=== PATIENT | female | born 1945 | race Caucasian/White ===

== ENCOUNTER 2019-04-25 11:49 | Outpatient (CLI) | payer MEDICARE, SELFPAY ==
--- NOTE | 2019-04-25 11:56 | US_ITS ---
WS: [id number] ULTRASOUND-GUIDED LEFT BREAST BIOPSY CLINICAL INFORMATION: MASS OF LEFT BREAST ON MAMMOGRAM COMPARISON: None. FINDINGS: The procedure including risks, benefits, and complications were discussed with the patient who agreed to proceed. Using sterile technique patient was prepped and draped in the usual sterile fashion. Aft er 1% lidocaine utilizing real-time ultrasound guidance 7 14-gauge cores were obtained of the left br east lesion at the 1 o'clock position. Subsequently a titanium clip was placed in the biopsy cavity. No immediate complications. 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 Microcalc ifications identified. US/[place] [id number] IMPRESSION: 1. Uncomplicated ultrasound-guided left breast biopsy. 2. The pathology demonstrates moderately differentiated invasive ductal carcin chandler nuclear grade 2. Microcalcifications identified. 3. Breast cancer prognostic profile pending. BI-RADS: 6-Known Biopsy-Proven Malignancy FOLLOW UP: See Report Recommend ONCOLOGY and SURGERY consultation.
[2019-05-06 10:44] LABS: Miscellaneous Test See Scanned Lab Rpt
== END 2019-04-25 11:50 | disposition home or self-care (01) ==
LOC: RAD 11:53
PROVIDERS: Family Provider Registered Nurse; PCP Registered Nurse; Visit Provider Registered Nurse
DX: C50.412 Malignant neoplasm of upper-outer quadrant of left female breast (principal); N63.21 Unspecified lump in the left breast, upper outer quadrant; R92.0 Mammographic microcalcification found on diagnostic imaging of breast
CPT/HCPCS: 19083; 88305; 88361; 88367; 88374

== ENCOUNTER 2019-05-14 09:17 | Outpatient (CLI) | payer MEDICARE, SELFPAY ==
--- NOTE | 2019-05-14 11:31 | ONC FU_ITS ---
Dr. Paiz follow up note Patient: Nina Cazares Unit #: [id number]: 1945 Dicatated By: Regis Paiz M.D.Date of Visit:May 14, 2019 Onc Med Follow-up/Prog Note History of Present Illness: Mrs. Nina Connelly, is a 73-year-old female with history of uterine carcinoma diagnosed in 2009, underwent hysterectomy and bilateral nephrectomy in [place], [place] followed by radiation therapy and chemotherapy in [facility]. Subsequently followed by Dr. masters with no evidence of recurrence. As per patient recently she went for routine yearly health checkup and mammogram was ordered which showed lesion at 1:00 position in the left breast, patient underwent ultrasound-guided biopsy of left breast on 04/25/2019 and final pathology report came back moderately differentiated invasive ductal carcinoma, grade 2, tumor size 0.4 cm, ER 89% positive SC 82% positives HER-2/shahida 2+ but negative for HER-2/shahida overexpression by IHC and over amplification by FISH. Patient denies any nipple discharge or retraction. Patient denies any palpable mass in the breast or in left axilla. Patient denies any new bony pains., As per patient it was incidental finding on her routine mammogram. Patient has family history of breast cancer in her mother at age 86 and maternal aunt at age 75 years. Patient also reported menarche at age 16 and menopause around age 52 and no history of hormonal supplements. Patient denies any fever chills denies any nausea or vomiting denies any headaches or blurred vision denies any shortness of breath or chest pain denies any jaundice denies any bony pains denies any weight loss. Medications: Aspirin 1 Tablet (of 81 mg) Oral daily, Escitalopram Oxalate 1 Tablet (of 10 mg) Oral daily, Lisinopril 1 Tablet (of 20 mg) Oral daily Allergies: No Known Allergies. Review of Systems: Review of Systems is not available for this patient. Vital Signs: Performed on May 14, 2019 10:28 Height - 63.00 in Weight - 185.0 lbs (HIGH) BSA - 1.87 sq.m BMI - 32.77 (HIGH) Temperature - 98.3 F (LOW) Pulse - 68 /min Respiration - 24 /min BP - 117/76 mm(hg) O2 Sat - 98 % Pain - 0 Performance Status: 0 - Fully active, able to carry on all predisease activities without restrictions. (ECOG) Physical Examination: ENMT - No oral exudates, ulcers, masses, thrush or mucositis. Oropharynx clear. Tongue normal. no left axillary lymphadenopathy, Respiratory - Lungs are clear to auscultation without rhonchi or wheezing, Cardiovascular - Regular rate and rhythm of heart, Abdomen - Non-tender, non-distended, Good bowel sounds. No guarding or rebound tenderness. No pulsatile masses, Extremities - no edema rash. Lab/Imaging: Most recent lab results are not available for this patient. Impression: Moderately differentiated invasive ductal carcinoma involving left breast per ultrasound guided left breast biopsy done on 04/25/2019 final pathology report showed moderately differentiated invasive ductal carcinoma, grade 2, ER strongly positive at 89%, SC strongly positive at 82%, HER-2/shahida 2+ posi but negative for HER-2/shahida overexpression by IHC and over amplification by FISH. Ki-67 8% 2. History of uterine carcinoma diagnosed in [address] masters , underwent bilateral oophorectomy/hysterectomy followed by radiation therapy and chemotherapy in [place], Plan: Discussed with patient regarding her disease status and further treatment options., Clinically appears patient has early-stage left breast invasive ductal carcinoma as it was incidental finding on mammogram and no palpable left axillary lymphadenopathy. ER/SC positive, low Ki-67, HER-2/shahida negative. At this point, we will refer her to surgeon for left breast lumpectomy with sentinel lymph node biopsy and also consider Oncotype DX score. Patient return to clinic after the procedure for further discussion and treatment plan. Signed By: Regis Piaz M.D. <<Signature on File>>
== END 2019-05-14 09:18 | disposition home or self-care (01) ==
LOC: ONCMED 09:17
PROVIDERS: Family Provider Registered Nurse; PCP Registered Nurse; Referring Provider Registered Nurse; Visit Provider Internal Medicine Hematology & Oncology
DX: C50.412 Malignant neoplasm of upper-outer quadrant of left female breast (principal); Z85.42 Personal history of malignant neoplasm of other parts of uterus; Z17.0 Estrogen receptor positive status [ER+]; Z79.82 Long term (current) use of aspirin; Z92.21 Personal history of antineoplastic chemotherapy; Z92.3 Personal history of irradiation; Z90.710 Acquired absence of both cervix and uterus
CPT/HCPCS: 99205

== ENCOUNTER 2019-05-27 08:21 | Day surgery (SDC) | payer MEDICARE, SELFPAY ==
[2019-05-26 15:01] VITALS: BMI 30.1
[2019-05-27] VITALS (12 sets, daily range): BP systolic 103–151; BP diastolic 56–80; PULSE 76–101; RESP 13–26; TEMP 36.3–36.6; O2SAT 92–98
--- NOTE | 2019-05-27 | US_ITS ---
WS: [id number] ULTRASOUND-GUIDED LEFT BREAST NEEDLE LOCALIZATION HISTORY: Needle localization LEFT breast mass. Procedure, risks and complications were explained to the patient. Consent is obtained. Skin is cleansed with ChloraPrep and anesthetized with 1% buffered lidocaine. Needle and guidewire pl aced to the area of concern with no complications. Ultrasound guidance performed during the needle lo calization. Guidewire is left within the lesion. Guidewire secured and no complications encountered. Patient is being transported to the OR suite. Specimen radiograph is also reviewed. Specimen contains the mass, clip and localization wire. 1. Uncomplicated needle localization of the LEFT breast mass at 1:00. PATHOLOGY RESULTS: Moderately differentiated carcinoma within 1 cm of the margin. RECOMMENDATIONS: Follow-up with Dr. Mckeon. US/US breast surgical specimen IMPRESSION:
--- NOTE | 2019-05-27 | NM_ITS ---
WS: [id number] NUCLEAR MEDICINE SENTINEL LYMPH NODE IMAGING HISTORY: SENTINAL NODE, LEFT breast. COMPARISON: 04/25/2019. 04/01/2019 TECHNIQUE: The patient was injected with 1.01 mCi of Technetium 99 ultra filtered sulfur colloid. Inj ection is intradermal in a periareolar location. Four aliquots are used. Uncomplicated injection. No imaging performed. NM/NM sentinel node inject [id number] IMPRESSION: Uncomplicated LEFT breast sentinel node injection.
--- NOTE | 2019-05-27 08:00 | US_ITS ---
WS: [id number] ULTRASOUND-GUIDED LEFT BREAST NEEDLE LOCALIZATION HISTORY: Needle localization LEFT breast mass. Procedure, risks and complications were explained to the patient. Consent is obtained. Skin is cleansed with ChloraPrep and anesthetized with 1% buffered lidocaine. Needle and guidewire pl aced to the area of concern with no complications. Ultrasound guidance performed during the needle lo calization. Guidewire is left within the lesion. Guidewire secured and no complications encountered. Patient is being transported to the OR suite. Specimen radiograph is also reviewed. Specimen contains the mass, clip and localization wire. 1. Uncomplicated needle localization of the LEFT breast mass at 1:00. PATHOLOGY RESULTS: Moderately differentiated carcinoma within 1 cm of the margin. RECOMMENDATIONS: Follow-up with Dr. Mckeon. US/[place] [id number] IMPRESSION:
[2019-05-27] MEDS: sodium chloride 0.9% 1,000 ML 30 ML IV (10:20)
--- NOTE | 2019-05-27 10:31 | ANES.PREANE2 ---
Pre-Anesthetic Assessment Pre-Anesthetic Assessment: Height/Weight: Height 1.6 m Weight 77.111 kg Temp Pulse Resp BP Pulse Ox 98 F 76 18 151/57 97 05/27/19 09:00 05/27/19 09:00 05/27/19 09:00 05/27/19 09:00 05/27/19 09:00 Proposed Procedure: Operation Date: 05/27/19 10:30 Proposed Procedures p Sentinal Lymph Node Biopsy [id number]/D05.12(Left) - Jason Mckeon MD s Breast Biopsy Needle Localization(Left) - Jason Mckeon MD s Breast Biopsy(Left) - Jason Mckeon MD Last intake: Intake Last Liquid Date 05/27/19 Last Liquid Time 06:00 Last Solid Date 05/26/19 Last Solid Time 21:00 Social: Social History: Tobacco ([id number]) and No alcohol Exam: Pre-Anes Outpt Exam: alert, oriented x 3, clear to auscultation bilaterally and regular rate & rhythm Airway: Submandibular: WNL Cervical ROM: WNL MP: 2 Dentition: False (upper) and Other (poor teeth) History/ROS: No significant history except as noted Pulmonary: Pulmonary: None reported CV/HEM: CV/HEM: HTN : : None reported Hepatic: Hepatic: None reported GI: GI: None reported Metabolic: Metabolic: None reported Musc/skel: Musc/skel: None reported Neuropsych: Neuropsych: Anxiety and Depression Anesthetic Plan: ASA status: 3 Anesthesia: Anesthesia Evaluation and General Risk of > 500 ml blood loss (7ml/kg in children): No PFSH Anesthesia PFSH: Medical History Enrolled in chronic care management Surgical History History of breast biopsy History of hysterectomy (~2009) History of lymph node excision (~04/2019) History of tonsillectomy Family History Mother Breast cancer Denies family history of Anesthesia complication Bleeding disorder Social History Smoking and tobacco status: former smoker Quit status (tobacco): has quit using tobacco Alcohol intake: never Adopted: No Caregiver/support person: Yes Lives independently: Yes Household members: family Housing: House Marital status: / service: No Current occupational status: retired Current occupational exposures/hazards: No Pets and animals: No History of recent travel: No Sexually active: No Current gender identity: Female Tia/Sabianist: Mormonism Special tia needs: No Agree to transfusion: No Financial difficulty paying for basics: Decline to Answer Data Anesthesia Cardiac Studies: No Data to Display
--- NOTE | 2019-05-27 11:10 | W.PM.OPSUD ---
Surgery/Procedure H&P Update DATE OF PROCEDURE: May 27, 2019 DATE H&P PERFORMED: 05/15/19 H&P UPDATE INFORMATION: H&P completed within last 30 days and No changes to prior documentation PREOP DIAGNOSIS: Left breast cancer PRIMARY INDICATION FOR PROCEDURE: The same PLANNED PROCEDURE: Operation Date: 05/27/19 10:30 Proposed Procedures p Sentinal Lymph Node Biopsy [id number]/D05.12(Left) - Jason Mckeon MD s Breast Biopsy Needle Localization(Left) - Jason Mckeon MD s Breast Biopsy(Left) - Jason Mckeon MD
[2019-05-27] MEDS: isosulfan blue 10 mg/mL SDV 5mL SUBCUT (11:45)
[2019-05-27] MEDS: lidocaine 2% INJ 20 mL INJECTION (11:46)
--- NOTE | 2019-05-27 13:12 | P.OP_ITS ---
Operative Report Date of procedure: May 27, 2019 Pre-op Diagnosis: Left breast cancer Post-op diagnosis: same Post-op Findings: Left breast lumpectomy including needle localization with ultrasound prior to surgery Left axillary sentinel lymph nodes #1 in vivo 93 and ex vivo and #2 in vivo 25 and 0 Surgical clips applied at the bed of the lumpectomy in the left axilla Procedure Done: Lumpectomy of needle localized left breast lump Left axillary sentinel lymph node biopsy Interpretation of the gamma probe was done by me through the whole entire Specimens removed/disposition: Left breast mass Left axillary sentinel lymph node by Surgeon: Jason Mckeon Kosher Butcher: Surgical techs Nighat and Lauryn Medical student [employer] Digital Marketing Specialist Circulating nurses Maya and Kitty ROSE Anesthesia: General (DOUGLAS Rios) Estimated blood loss (mL): 10 Condition: stable Disposition: same day Brief History: This is a pleasant 73 years old female patient was recently diagnosed with a small mass of the left breast that shows invasive component of infiltrating ductal carcinoma, I did evaluate the patient and counseled her for needle localization with lumpectomy and sentinel lymph node biopsy of the left axilla, patient agreed to proceed Informed consent per chart Procedure: In the nuclear medicine suite,Procedure was explained to the patient. Informed consent obtained. Time out was performed. The correct breast was marked. The skin at the adrenal skin interface was marked at the 12:00, 3:00, 6:00, 9:00 positions and prepped in a sterile manner. At the skin markings, the subcutaneous soft tissues were anesthetized with buffered 1% lidocaine. At each site, single aliquots of technetium 99m filtered sulfur colloid were administered into the subcutaneous soft tissues (total activity of 1.1 mCi). No apparent post procedure complication. Also,After patient undergone a needle localization at Radiology Department under ultrasound guidance Few hours later, the patient was taken to the operating room after marking the left breast and axilla by myself in the holding area, and general anesthesia was induced,Time-out was done verifying the patient's name/date of /planned procedure and destination after the procedure, all were in agreement. SCDs confirmed to be functioning, preoperative antibiotics administered per protocol, and beta clif protocol was confirmed, appropriate positioning of the patient was done by me. patient was placed in supine position, with her left side being towards the edge of the table, I was able to take down the tape and dressing on top of the wire without jeopardizing it. And hand-held gamma probe was used to identify the location of the hottest spot in the axilla .prep and drape was done for the chest including both breasts and left arm and axilla, time-out was done verifying the patient's name medical record number and destination after the procedure, all were in agreement, IV antibiotics were given with induction. Lymphazurin blue dye was injected at the subareolar region, this was massaged gently for 5 minutes, again hand-held probe was used to identify the location of the hottest spot in the axilla. After identifying the direction of the wire on the images .I did perform a transverse incision at the site of entrance of the needle used for the localization , dissection was carried on using electrocautery. The localization wire was grasped and pulled into the incision and dissection continued towards the tip of the wire. The breast tissue containing imae abnormality was grasped with Allis forceps and using electrocautery the specimen was dissected free from the surrounding tissue.good margin of normal breast tissue surrounding the mass, and and the specimen was taken out and passed to the circulating nurse to send for ultrasound and pathology. Specimen was oriented with short suture superior and wire marked lateral Later we got the clearance from radiology department that the imaged abnormality was all included in the specimen with appropriate margins Attention was deviated to the left leg Prior to the incision, incision was made over the left axilla, the probe was placed in contact with the node/stained blue, each lymph node was excised in its entirety. Adama counts as follows [place] lymph node #1 in vivo 93 ex vivo 0 [place] lymph node #2 in vivo 25 and ex vivo is The above lymph node was placed in order and passed to the circulating nurse for permanent pathology No additional hot spots were detected, or blue lymphatics were identified. No clinically abnormal nodes were palpated. Procedure was terminated at this point. Hemostasis was achieved using small clips and Bovie cautery, after thorough irrigation of the left axilla, and the wound was closed in layers using interrupted 3-0 Vicryl followed by 4-0 Monocryl. Thorough irrigation of of both cavities in occluding the left axillary wound and the left breast was done and hemostasis, followed by deep dermal closure by 3-0 Vicryl, then 4-0 Monocryl for skin closure Lidocaine 2% was injected at the site of the incision, Dermabond was applied followed by dry dressing in the form of Telfa and Tegaderm. Pressure dressing was applied followed by fluffs and a sports bra Patient tolerated the procedure well, count of instruments,needles and sponges were completed at the end of the procedure. And then patient was taken to the recovery area in stable condition. I was present for the whole entire procedure
--- NOTE | 2019-05-27 13:26 | SUR.PHASEI ---
1318 PT TO PACU SLEEPY WITH ORAL AIRWAY IN PLACE WITH GOOD RESP NOTED PT LT BREAST AND LT AXILLARY SITES WITH EXOFIN AND FLUFFS AND SUPPORT BRA D/I
--- NOTE | 2019-05-27 13:30 | SUR.PHASEI ---
1325 PT AWAKES FOR FEW SECONDS ORAL AIR WAY OUT PT QUICKLY BACK TO SLEEP WITH GOOD RESP EFFORT NOTED ,VSS
--- NOTE | 2019-05-27 13:34 | SUR.PHASEI ---
PT ON RA , MORE ALERT TAKING OCC ICE CHIPS
--- NOTE | 2019-05-27 13:46 | SUR.PHASEI ---
1340 PT ON 2LNC SATS UP TO 97\\5 PT ALERT TAKING ICE CHIPS VSS
== END 2019-05-27 14:41 | disposition home or self-care (01) ==
PROVIDERS: Family Provider Registered Nurse; PCP Registered Nurse; Visit Provider Surgery
PROC: (CPT 19301; principal; 2019-05-27 10:30)
PROC: (CPT 19301; 2019-05-27 10:30)
PROC: (CPT 19301; 2019-05-27 10:30)
DX: C50.912 Malignant neoplasm of unspecified site of left female breast (principal); Z79.82 Long term (current) use of aspirin; Z87.891 Personal history of nicotine dependence; I10 Essential (primary) hypertension
CPT/HCPCS: 19301; 38500; 12345; 19285; 38792; 88305; 96365; A9541; J0690; J1100; J1885; J2001; J2370; J2405; J2704; J3010; J7030; Q9968

== ENCOUNTER 2019-06-04 08:41 | Outpatient (RCR) | payer MEDICARE, SELFPAY | END 2019-06-07 23:59 | disposition home or self-care (01) | LOC: SPT 08:41 | PROVIDERS: Family Provider Registered Nurse; PCP Registered Nurse; Referring Provider Surgery; Visit Provider Surgery | DX: C50.919 Malignant neoplasm of unspecified site of unspecified female breast (principal) | CPT/HCPCS: 97162 ==

== ENCOUNTER 2019-06-08 06:00 | Outpatient (RCR) | payer MEDICARE, SELFPAY | END 2019-07-08 23:59 | disposition home or self-care (01) | LOC: SPT 06:00 | PROVIDERS: Family Provider Registered Nurse; PCP Registered Nurse; Referring Provider Surgery; Visit Provider Surgery | DX: C50.919 Malignant neoplasm of unspecified site of unspecified female breast (principal) | CPT/HCPCS: 97140 ==

== ENCOUNTER 2019-06-26 14:37 | Outpatient (CLI) | payer MEDICARE, SELFPAY ==
--- NOTE | 2019-06-26 14:45 | USCV_ITS ---
Nina Cazares Age: 73 Gender: F : 1945 Exam Date: 06/26/2019 14:59 Ordering Phys: Danika Butler ELECTRONICS SCALE TESTER Technologist: Rhonda Dinero Exam Location: [facility] Indication: RED LOWER RT LEG HISTORY: Red lower rt leg. PROCEDURES: The venous duplex Doppler examination of both lower extremities was performed in the standard fashion. The following venous structures were evaluated: common femoral vein, profunda vein, proximal portion of the greater saphenous vein, superficial femoral vein, and the popliteal vein. In addition, the posterior tibial and peroneal trunk were evaluated. Serial compression, augmentation maneuvers, and spectral Doppler flow evaluation were performed. FINDINGS: No DVT seen in any vessel examined CONCLUSIONS No evidence of right lower extremity DVT. No evidence of left lower extremity DVT. Yg Lopes MD (Electronically Signed) Final Date: 26 June 2019 16:03 S
== END 2019-06-26 14:38 | disposition home or self-care (01) ==
LOC: RAD 14:42
PROVIDERS: Family Provider Registered Nurse; PCP Registered Nurse; Visit Provider Nurse Practitioner Family
DX: I82.409 Acute embolism and thrombosis of unspecified deep veins of unspecified lower extremity (principal)
CPT/HCPCS: 93970

== ENCOUNTER 2019-07-08 08:27 | Outpatient (CLI) | payer MEDICARE, SELFPAY ==
--- NOTE | 2019-07-09 15:24 | ONC FU_ITS ---
Dr. Paiz follow up note Patient: Nina Cazares Unit #: [id number]: 1945 Dicatated By: Regis Paiz M.D.Date of Visit:Jul 08, 2019 Onc Med Follow-up/Prog Note History of Present Illness: Mrs. Nina Connelly, is a 73-year-old female with history of uterine carcinoma diagnosed in 2009, underwent hysterectomy and bilateral nephrectomy in [place], [place] followed by radiation therapy and chemotherapy in [facility]. Subsequently followed by Dr. masters with no evidence of recurrence. As per patient recently she went for routine yearly health checkup and mammogram was ordered which showed lesion at 1:00 position in the left breast, patient underwent ultrasound-guided biopsy of left breast on 04/25/2019 and final pathology report came back moderately differentiated invasive ductal carcinoma, grade 2, tumor size 0.4 cm, ER 89% positive ID 82% positives HER-2/shahida 2+ but negative for HER-2/shahida overexpression by IHC and over amplification by FISH. Underwent left breast lumpectomy with sentinel lymph node biopsy on no 05/27/2019 final pathology report showed residual moderately differentiated invasive ductal carcinoma, 0.5 cm, grade 2, clear surgical margins but close. Two left axillary sentinel lymph node were examined showed no evidence of metastatic disease. T1a, N0 MX Oncotype DX score 5 e.g. low . Risk of distant recurrence at 9 year with aromatase inhibitor is about 3% and there is no benefit from chemotherapy.started on Arimidex 1 mg by mouth daily for 5 years along with vitamin D/calcium on Patient denies any nipple discharge or retraction. Patient denies any palpable mass in the breast or in left axilla. Patient denies any new bony pains., As per patient it was incidental finding on her routine mammogram. Patient has family history of breast cancer in her mother at age 86 and maternal aunt at age 75 years. Patient also reported menarche at age 16 and menopause around age 52 and no history of hormonal supplements. Patient denies any fever chills denies any nausea or vomiting denies any headaches or blurred vision denies any shortness of breath or chest pain denies any jaundice denies any bony pains denies any weight loss. Came for follow-up, denies any specific complaints, denies any fever chills denies any nausea vomiting surgical wound is healing well. Medications: Aspirin 1 Tablet (of 81 mg) Oral daily, Escitalopram Oxalate 1 Tablet (of 10 mg) Oral daily, Lisinopril 1 Tablet (of 20 mg) Oral daily Allergies: No Known Allergies. Review of Systems: Review of Systems is not available for this patient. Vital Signs: Performed on Jul 08, 2019 08:43 Height - 63.00 in Weight - 180.8 lbs (LOW) BSA - 1.85 sq.m BMI - 32.03 (HIGH) Temperature - 97.6 F (LOW) Pulse - 70 /min Respiration - 20 /min BP - 142/71 mm(hg) (HIGH) O2 Sat - 98 % Pain - 0 Performance Status: 0 - Fully active, able to carry on all predisease activities without restrictions. (ECOG) Physical Examination: Respiratory - Lungs are clear to auscultation without rhonchi or wheezing, Cardiovascular - Regular rate and rhythm of heart, Extremities - no edema. Lab/Imaging: Most recent lab results are not available for this patient. Impression: Moderately differentiated invasive ductal carcinoma involving left breast status post lumpectomy with left axilla sentinel lymph node dissection done on 05/27/2019 final pathology report showed 0.5 cm invasive tumor, grade 2 clear surgical margins but close. Two sentinel lymph nodes were examined and showed no evidence of metastatic disease . T1a , N0, stage IA Oncotype DX score 5 e.g. low, no benefit from chemotherapy. Risk of distant recurrence at 9 years with aromatase inhibitor is about 3%. started on Arimidex 1 mg for 5 years along with vitamin D/calcium supplements on ER strongly positive at 89%, ID strongly positive at 82%, HER-2/shahida 2+ posi but negative for HER-2/shahida overexpression by IHC and over amplification by FISH. Ki-67 8% 2. History of uterine carcinoma diagnosed [place] [address] masters , underwent bilateral oophorectomy/hysterectomy followed by radiation therapy and chemotherapy in [place], Plan: Discussed with patient regarding her final pathology report which showed small residual invasive tumor e.g. 0.5 cm and 2 axillary/sentinel lymph nodes was examined and showed no evidence of disease, being ER/ID positive HER-2/shahida negative, prognostic Oncotype DX assay was ordered which showed low score e.g. 5, means no benefit from adjuvant chemotherapy and with aromatase inhibitor risk of distance metastases at 9 years will be about 3%. At this point we will start her on adjuvant hormonal therapy with Arimidex 1 mg by mouth daily for 5 years along with vitamin D and calcium supplement. All the side effect possible benefits associated with hormonal therapy include but not limited to hot flashes, bone demineralization, occasionally muscle skeleton pain, patient expressed full understanding further teaching will done by chemotherapy nurse. And she will return to clinic in one month with CBC CMP in the meantime we'll refer her to radiation oncology for postlumpectomy radiation therapy. Signed By: Regis Paiz M.D. <<Signature on File>>
== END 2019-07-08 08:28 | disposition home or self-care (01) ==
LOC: ONCMED 08:28
PROVIDERS: Family Provider Registered Nurse; PCP Registered Nurse; Visit Provider Internal Medicine Hematology & Oncology
DX: C50.412 Malignant neoplasm of upper-outer quadrant of left female breast (principal); Z17.0 Estrogen receptor positive status [ER+]; Z79.899 Other long term (current) drug therapy; Z79.82 Long term (current) use of aspirin; Z79.811 Long term (current) use of aromatase inhibitors; Z92.3 Personal history of irradiation; Z90.710 Acquired absence of both cervix and uterus; Z90.722 Acquired absence of ovaries, bilateral; Z85.42 Personal history of malignant neoplasm of other parts of uterus; Z92.21 Personal history of antineoplastic chemotherapy; Z80.3 Family history of malignant neoplasm of breast
CPT/HCPCS: 99214

== ENCOUNTER 2019-08-07 06:46 | Outpatient (RCR) | payer MEDICARE, SELFPAY ==
--- NOTE | 2019-07-16 11:39 | N.ONRAD NP_ITS ---
Radiation Oncology New Patient Visit Patient: Nina Cazares MR#: [id number] : 1945> Age: 73> Sex: Female> Dictated by: Dr. Ilir Ruiz Date of Service: 07/16/2019 Referring Physician(s) : Tung Michelle M.D. Diagnosis: C50.412 - malignant neoplasm of upper-outer quadrant of left female breast, Diagnosed 05/14/2019 (active), stage ia, t1a, pn0, m0, g2, her2 neg, er pos, pr p. Radiotherapy to date: Course: Course, Treatment Site: PELVIS, Ref. ID: [id number], Energy: 15X, Dose/Fx (cGy): 180, #Fx: 25 / 25, Dose Correction (cGy): 0, Total Dose (cGy): 4,500, Start Date: 11/09/2009, End Date: 12/17/2009, Elapsed Days: 38Summary > No prior radiation therapy. 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 Estrogen and progesterone receptor assays were positive, H ER-2 was negative. She underwent lumpectomy and sentinel node biopsy and Oncotype being 5 for the likelihood of recurrence, 3% distant recurrence risk at 9 years, and is not felt to benefit from systemic chemotherapy. We were asked to evaluate her and render opinions with respect to the use of radiation in her disease. Current Medications: Anastrozole, aspirin, escitalopram Oxalate, lisinopril. Allergies: No Known Allergies Medical History: - Hypertension. No history of collagen vascular disease. No previous radiation therapy. Surgical History: Breast biopsy, hysterectomy and tonsillectomy. Family History: Father is at age 70. Mother is alive having experienced breast cancer. Brother is alive. Brother is alive. Sister is alive. Sister is alive. Maternal Aunt is alive having experienced Breast Cancer. Social History: Last screened on 07/16/2019 - Yes - but has quit for 5 years. Smoked 1.0 pack/day for 47 years (47 pack years). Last screened on 07/16/2019 - Never drank. Current Complaints / Review of Systems: . 12 point review of system was essentially negative except for remote history of gynecologic cancer being treated 10 years ago with combination of external beam radiation to the pelvis along with brachii therapy as delivered in [facility]. She is 10 years out from those treatment and is considered free of gynecologic disease. Vital Signs: Performed on 07/16/2019 9:23 AM BMI - 32.311 kg/m2 (high), Height - 63.00 in, Weight - 182.4 lbs, Temperature - 97.0 f, Pulse - 72, Respiration - 18, O2 Sat - 96 %, Pain - 0, Fatigue - 0 and BP - 105/ 52 mm(hg)(/low). Physical Exam: Head eyes ears nose and throat are within normal limits. Her neck is supple. No nodes are felt. The thyroid not felt. The right breast is normal to palpation without masses. There are no palpable nodes in the right axilla nor right supraclavicular fossa. Left breast shows evidence of prior lumpectomy. There are no palpable residual masses in the texture of the left breast nor palpable lymphadenopathy in the left axilla nor left supraclavicular fossa. Her chest is clear to auscultation and percussion Heart has regular rate and rhythm. The abdomen is soft liver and spleen are not felt. There is no palpable abdominal organomegaly. He has no points of bony tenderness. The neurologic exam is grossly within physiologic limits. Skin appears within normal limits. Performance Status: 0 - Fully active, able to carry on all predisease activities without restrictions. (ECOG) Pathology: Primary, c50.412 - malignant neoplasm of upper-outer quadrant of left female breast, Diagnosed 05/14/2019 (active) stage ia, t1a, pn0, m0, g2, her2 neg, er pos, pr p. Lab: Imaging: See HPI Impression:[place] I T2a invasive ductal carcinoma of the upper outer quadrant of the left breast status post lumpectomy and sentinel node biopsy Plan: We agree with a breast conservation approach that was undertaken. We would suggest doses in the range of 4000 cGy in 16 fractions followed by a boost to the tumor bed of 1000 cGy in 4 fractions. Risk and benefits of a radiation of been carefully discussed with the patient and her questions were answered to her satisfaction. I did discuss the [place] fractionation versus conventional fractionation for her clinical situation. She has agreed to proceed using the [place] fractionation. She will undergo CT-guided simulation and treatment planning and will embark on her course of breast conserving irradiation as soon as technically feasible. Her hormonal manipulation will be managed by Dr. Mondragon Signed by: 07/16/2019 11:38:08 AM <<Signature on File>> Time spent with patient: 45 min CPT Code: CPT Code:
--- NOTE | 2019-07-17 | CT_ITS ---
Radiation Therapy Planning CT images; total exam DLP: 734.09 mGy-cm MTDD
--- NOTE | 2019-07-22 14:01 | ONCRAD TMN_ITS ---
Radiation Oncology Weekly Treatment Management Patient: Nina Cazares MR#: [id number] : 1945> Age: 73> Sex: Female Dictated by: Dr. Ilir Ruiz Date of Service: 07/22/2019 Referring Physician(s) : Tung Michelle M.D. Primary Diagnosis: C50.412 - Malignant neoplasm of upper-outer quadrant of left female breast, Diagnosed 05/14/2019 (Active) Stage IA, T1a, pN0, M0, G2, HER2 Neg, ER Pos, IN P Radiotherapy to date: Course: LT Breast 2019, Treatment Site: LT [id number], Ref. ID: [id number], Energy: 15X, Dose/Fx (cGy): 266, #Fx: , Dose Correction (cGy): 0, Total Dose (cGy): 266, Start Date: 07/22/2019, Elapsed Days: 0 Current Complaints/Interval History: Constitutional Denies lack of appetite, fatigue, fever, night sweats and change in weight. Breasts Denies pain. Cardiovascular Denies chest pain. Respiratory Complains of cough related to sinus drainage. Denies dyspnea and wheezing. Current Medications: Anastrozole, aspirin, escitalopram Oxalate, lisinopril. Allergies: No Known Allergies Vital Signs: Performed on 07/22/2019 1:13 PM BMI - 32.701 kg/m2 (high), Height - 63.00 in, Weight - 184.6 lbs, Temperature - 98.5 f, Pulse - 70, Respiration - 18, O2 Sat - 97 %, Pain - 0 and BP - 122/ 61 mm(hg)(/low). Physical Exam: Appears stable, no skin erythema or desquamation. Performance Status: 0 - Fully active, able to carry on all predisease activities without restrictions. (ECOG) Lab: None pending in Radiation Oncology. Imaging: No new diagnostic imaging was performed since the last weekly treatment visit. All radiation therapy related imaging (including but not limited to kV, MV, and CBCT generated images) was reviewed. Appropriate changes, if any, were made to assure accurate target localization. Impression/Plan: Tolerating treatment well with expected side effects. Continue treatment as planned. CPT: 24828 Signed by: Dr. Ilir Ruiz>07/22/2019 1:58:52 PM <<Signature on File>>
--- NOTE | 2019-07-30 08:49 | ONCRAD TMN_ITS ---
Radiation Oncology Weekly Treatment Management Patient: Nina Cazares MR#: [id number] : 1945> Age: 73> Sex: Female Dictated by: Cal Madrid Date of Service: 07/30/2019 Referring Physician(s) : Tung Michelle M.D. Primary Diagnosis: C50.412 - Malignant neoplasm of upper-outer quadrant of left female breast, Diagnosed 05/14/2019 (Active) Stage IA, T1a, pN0, M0, G2, HER2 Neg, ER Pos, MI P Radiotherapy to date: Course: LT Breast 2019, Treatment Site: LT [id number], Ref. ID: [id number], Energy: 15X, Dose/Fx (cGy): 266, #Fx: , Dose Correction (cGy): 0, Total Dose (cGy): 1,862, Start Date: 07/22/2019, Elapsed Days: 8 Current Complaints/Interval History: Doing well with treatment thus far. Mild fatigue. Active with ADLs. Not yet using aquaphor but plans to do so at first sign of skin redness. Constitutional Has good appetite. Has mild fatigue. No recent fevers ENMT Has no painful swallowing Integumentary Has no redness or rash to the left breast Breasts Has no breast pain Cardiovascular Has no chest pain or abnormal heartbeats Respiratory Has a mild cough related to sinus drainage. No shortness of breath or wheezing Current Medications: Anastrozole, aspirin, escitalopram Oxalate, lisinopril. Allergies: No Known Allergies Vital Signs: Performed on 07/30/2019 8:29 AM BMI - 33.126 kg/m2 (high), Height - 63.00 in, Weight - 187.0 lbs, Temperature - 98.9 f, Pulse - 74, Respiration - 18, O2 Sat - 96 %, Pain - 0 and BP - 136/ 69 mm(hg). Physical Exam: Appears stable, no skin erythema or desquamation. Performance Status: 0 - Fully active, able to carry on all predisease activities without restrictions. (ECOG) Lab: None pending in Radiation Oncology. Imaging: No new diagnostic imaging was performed since the last weekly treatment visit. All radiation therapy related imaging (including but not limited to kV, MV, and CBCT generated images) was reviewed. Appropriate changes, if any, were made to assure accurate target localization. Impression/Plan: Tolerating treatment well with expected side effects. Continue treatment as planned. CPT: 95068 Signed by: Cal Madrid>07/30/2019 8:48:17 AM <<Signature on File>>
--- NOTE | 2019-08-05 17:08 | ONCRAD TMN_ITS ---
Radiation Oncology Weekly Treatment Management Patient: iNna Cazares MR#: [id number] : 1945> Age: 73> Sex: Female Dictated by: Dr. Cal Madrid Date of Service: 08/05/2019 Referring Physician(s) : Tung Michelle M.D. Primary Diagnosis: C50.412 - Malignant neoplasm of upper-outer quadrant of left female breast, Diagnosed 05/14/2019 (Active) Stage IA, T1a, pN0, M0, G2, HER2 Neg, ER Pos, OK P Radiotherapy to date: Course: Breast 2019 Treatment Site: [id number], Ref. ID: [id number], Energy: 15X, Dose/Fx (cGy): 266, #Fx: , Dose Correction (cGy): 0, Total Dose (cGy): 2,926, Start Date: 07/22/2019, Elapsed Days: 14 Current Complaints/Interval History: Generally feeling well. Active with good energy level.. Will now begin Aquaphor Constitutional Denies lack of appetite, fatigue, fever and night sweats. ENMT Denies dysphagia. Integumentary Has slight redness to the left breast Breasts Denies pain. Cardiovascular Denies arrhythmias, chest pain and edema. Respiratory Denies cough, dyspnea and wheezing. Current Medications: Anastrozole, aspirin, escitalopram Oxalate, lisinopril. Allergies: No Known Allergies Vital Signs: Performed on 08/05/2019 8:45 AM BMI - 33.161 kg/m2 (high), Height - 63.00 in, Weight - 187.2 lbs, Temperature - 98.6 f, Pulse - 67, Respiration - 18, O2 Sat - 97 %, Pain - 0, Fatigue - 0 and BP - 100/ 66 mm(hg). Physical Exam: Appears stable, no skin erythema or desquamation. Performance Status: 0 - Fully active, able to carry on all predisease activities without restrictions. (ECOG) Lab: None pending in Radiation Oncology. Imaging: No new diagnostic imaging was performed since the last weekly treatment visit. All radiation therapy related imaging (including but not limited to kV, MV, and CBCT generated images) was reviewed. Appropriate changes, if any, were made to assure accurate target localization. Impression/Plan: Tolerating treatment well with expected side effects. Continue treatment as planned. CPT: 25221 Signed by: Dr. Cal Madrid>08/05/2019 5:06:45 PM <<Signature on File>>
[2019-08-06 08:58] LABS: Basophils % 0.7 %; Eosinophils # 0.2 10^3/uL (0.0-0.8); Eosinophils % 5.3 %; Hematocrit 37.2 % (37.0-47.0); Hemoglobin 11.8 g/dL (11.5-15.3); Lymphocytes # 0.9 10^3/uL (0.8-4.8); Mean Corpuscular HGB Conc 31.7 g/dL (30.0-36.0); Mean Corpuscular Hemoglobin 26.8 pg (28.0-34.0); Mean Corpuscular Volume 84.5 fL (81-99); Mean Platelet Volume 10.5 fL (7.4-10.4); Monocytes # 0.7 10^3/uL (0.2-0.9); Monocytes % 14.3 %; Neutrophils # 2.7 10^3/uL (1.8-7.7); Neutrophils % 60.3 %; Nucleated Red Blood Cells % 0 %; Platelet Count 249 10^3/cmm (130-400); Red Cell Distribution Width 14.1 % (12.1-15.1); White Blood Count 4.5 10^3/uL (4.0-10.0)
[2019-08-06 09:13] LABS: Alanine Aminotransferase 14 U/L (0-33); Albumin Level 3.9 g/dL (3.5-5.2); Alkaline Phosphatase 111 IU/L (35-105); Anion Gap 14.9 (5-19); Aspartate Amino Transferase 20 U/L (0-32); Blood Urea Nitrogen 19 mg/dL (8-23); Calcium 10.1 mg/dL (8.5-10.5); Carbon Dioxide 26 mmol/L (22-29); Chloride 96 mmol/L (98-107); Globulin 3.4 g/dL (1.3-4.6); Glucose 84 mg/dL (65-115); Osmolality Calculated 270 mOsm/kg (285-295); Potassium 4.9 mmol/L (3.5-5.1); Sodium 132 mmol/L (136-145); Total Bilirubin 0.4 mg/dL (0.15-1.2); Total Protein 7.3 g/dL (6.6-8.7)
--- NOTE | 2019-08-07 13:26 | ONC FU_ITS ---
Dr. Paiz follow up note Patient: Nina Cazares Unit #: [id number]: 1945 Dicatated By: Regis Paiz M.D.Date of Visit:Aug 07, 2019 Onc Med Follow-up/Prog Note History of Present Illness: Mrs. Nina Connelly, is a 73-year-old female with history of uterine carcinoma diagnosed in 2009, underwent hysterectomy and bilateral nephrectomy in [place], [place] followed by radiation therapy and chemotherapy in [facility]. Subsequently followed by Dr. masters with no evidence of recurrence. As per patient recently she went for routine yearly health checkup and mammogram was ordered which showed lesion at 1:00 position in the left breast, patient underwent ultrasound-guided biopsy of left breast on 04/25/2019 and final pathology report came back moderately differentiated invasive ductal carcinoma, grade 2, tumor size 0.4 cm, ER 89% positive UT 82% positives HER-2/shahida 2+ but negative for HER-2/shahida overexpression by IHC and over amplification by FISH. Underwent left breast lumpectomy with sentinel lymph node biopsy on no 05/27/2019 final pathology report showed residual moderately differentiated invasive ductal carcinoma, 0.5 cm, grade 2, clear surgical margins but close. Two left axillary sentinel lymph node were examined showed no evidence of metastatic disease. T1a, N0 MX Oncotype DX score 5 e.g. low . Risk of distant recurrence at 9 year with aromatase inhibitor is about 3% and there is no benefit from chemotherapy.started on Arimidex 1 mg by mouth daily for 5 years along with vitamin D/calcium on 07/08/2019 Patient denies any nipple discharge or retraction. Patient denies any palpable mass in the breast or in left axilla. Patient denies any new bony pains., As per patient it was incidental finding on her routine mammogram. Patient has family history of breast cancer in her mother at age 86 and maternal aunt at age 75 years. Patient also reported menarche at age 16 and menopause around age 52 and no history of hormonal supplements. . Came for follow-up, denies any specific complaints, no nausea vomiting, no fever or chills, no diarrhea constipation, no new bony pains, occasional hot flashes otherwise tolerating Arimidex well, also about to finish postlumpectomy radiation therapy Medications: Aspirin 1 Tablet (of 81 mg) Oral daily, Calcium Citrate + D Tablet Oral, Escitalopram Oxalate 1 Tablet (of 10 mg) Oral daily, Lisinopril 1 Tablet (of 20 mg) Oral daily Allergies: No Known Allergies. Review of Systems: Review of Systems is not available for this patient. Vital Signs: Performed on Aug 07, 2019 08:48 Height - 63.00 in Weight - 185.2 lbs (LOW) BSA - 1.87 sq.m BMI - 32.81 (HIGH) Temperature - 97.6 F (LOW) Pulse - 83 /min Respiration - 19 /min BP - 149/57 mm(hg) (HIGH) O2 Sat - 97 % Pain - 0 Performance Status: 0 - Fully active, able to carry on all predisease activities without restrictions. (ECOG) Physical Examination: Respiratory - Lungs are clear, Cardiovascular - Regular rate and rhythm of heart, Extremities - no visible edema. Lab/Imaging: Most recent lab results are not available for this patient. Impression: Moderately differentiated invasive ductal carcinoma involving left breast status post lumpectomy with left axilla sentinel lymph node dissection done on 05/27/2019 final pathology report showed 0.5 cm invasive tumor, grade 2 clear surgical margins but close. Two sentinel lymph nodes were examined and showed no evidence of metastatic disease . T1a , N0, stage IA Oncotype DX score 5 e.g. low, no benefit from chemotherapy. Risk of distant recurrence at 9 years with aromatase inhibitor is about 3%. started on Arimidex 1 mg for 5 years along with vitamin D/calcium supplements on 07/08/2019 ER strongly positive at 89%, UT strongly positive at 82%, HER-2/shahida 2+ posi but negative for HER-2/shahida overexpression by IHC and over amplification by FISH. Ki-67 8% 2. History of uterine carcinoma diagnosed [place] [address] masters , underwent bilateral oophorectomy/hysterectomy followed by radiation therapy and chemotherapy in [place], Plan: Discussed with patient regarding her labs white blood count 4.5 hemoglobin 11.8 crit 37.2 platelets 249,000 CMP within normal limits Clinically, patient is doing well, tolerating adjuvant therapy with Arimidex well but with expected side effects, occasionally hot flashes or generalized weakness. And patient is also undergoing left breast postlumpectomy radiation therapy, and is about to finish. So we'll continue with Arimidex/vitamin D/calcium supplements and then she will return to clinic in 3 months with CBC CMP. Signed By: Regis Paiz M.D. <<Signature on File>>
== END 2019-08-07 23:59 | disposition home or self-care (01) ==
LOC: ONCMED 06:46
PROVIDERS: Absent Provider Radiology Radiation Oncology; Family Provider Registered Nurse; PCP Registered Nurse; Visit Provider Internal Medicine Hematology & Oncology
DX: Z51.0 Encounter for antineoplastic radiation therapy (principal); C50.412 Malignant neoplasm of upper-outer quadrant of left female breast; Z17.0 Estrogen receptor positive status [ER+]; Z79.811 Long term (current) use of aromatase inhibitors; Z79.82 Long term (current) use of aspirin; Z85.42 Personal history of malignant neoplasm of other parts of uterus
CPT/HCPCS: 36415; 77290; 77295; 77300; 77307; 77334; 77336; 77412; 77417; 80053; 85025; 99204; 99214

== ENCOUNTER 2019-08-18 06:45 | Outpatient (RCR) | payer MEDICARE, SELFPAY ==
--- NOTE | 2019-08-13 09:54 | ONCRAD TMN_ITS ---
Radiation Oncology Weekly Treatment Management Patient: Nina Cazares MR#: [id number] : 1945> Age: 73> Sex: Female Dictated by: Dr. Cal Madrid Date of Service: 08/13/2019 Referring Physician(s) : Tung Michelle M.D. Primary Diagnosis: C50.412 - Malignant neoplasm of upper-outer quadrant of left female breast, Diagnosed 05/14/2019 (Active) Stage IA, T1a, pN0, M0, G2, HER2 Neg, ER Pos, MS P Radiotherapy to date: Course: LT Breast 2019, Treatment Site: [id number], Ref. ID: [id number], Energy: 15X/6X, Dose/Fx (cGy): 250, #Fx: , Dose Correction (cGy): 0, Total Dose (cGy): 250, Start Date: 08/13/2019, Elapsed Days: 0 Treatment Site: LT [id number] Ref. ID: [id number] Energy: 15X Dose/Fx (cGy): 266, #Fx: 16, Dose Correction (cGy): 0, Total Dose (cGy): 4,256, Start Date: 07/22/2019, End Date: 08/12/2019, Elapsed Days: 21 Current Complaints/Interval History: Breast redness and itch stable. Using OTC steroids and aquaphor. She remains active with ADLS. Constitutional Complains of mild fatigue. Denies lack of appetite, fever, night sweats and change in weight. ENMT Denies dysphagia. Integumentary Has redness and a rash to the left breast Breasts Complains of pain in the left breast on the outer breast that is tender. Cardiovascular Denies chest pain. Respiratory Complains of a mild cough which is non-productive. Denies dyspnea and wheezing. Current Medications: Anastrozole, aspirin, calcium Citrate + D, escitalopram Oxalate, lisinopril. Allergies: No Known Allergies Vital Signs: Performed on 08/13/2019 8:52 AM BMI - 32.949 kg/m2 (high), Height - 63.00 in, Weight - 186.0 lbs, Temperature - 98.2 f, Pulse - 76, Respiration - 18, O2 Sat - 99 %, Pain - 0 and BP - 122/ 73 mm(hg). Physical Exam: Breast erythema worse medial-superiorly and in infra-mammary fold. No desquamation seen. Performance Status: 0 - Fully active, able to carry on all predisease activities without restrictions. (ECOG) Lab: None pending in Radiation Oncology. Test performed on 08/06/2019 8:45 AM MCH - 26.8 pg (low), MPV - 10.5 fl (high), Sodium - 132 mmol/l (low), Chloride - 96 mmol/l (low), Creatinine - 1.2 mg/dl (high), Cr Clearance (Est) - 57.03 ml/min (low) and Alkaline Phosphatase - 111 iu/l (high). Imaging: No new diagnostic imaging was performed since the last weekly treatment visit. All radiation therapy related imaging (including but not limited to kV, MV, and CBCT generated images) was reviewed. Appropriate changes, if any, were made to assure accurate target localization. Impression/Plan: Tolerating treatment well with expected side effects. Continue treatment as planned. CPT: 40361 Signed by: Dr. Cal Madrid>08/13/2019 9:54:06 AM <<Signature on File>>
== END 2019-09-07 23:59 | disposition home or self-care (01) ==
LOC: ONCMED 06:45
PROVIDERS: Family Provider Registered Nurse; PCP Registered Nurse; Visit Provider Radiology Radiation Oncology
DX: Z51.0 Encounter for antineoplastic radiation therapy (principal); C50.412 Malignant neoplasm of upper-outer quadrant of left female breast; Z17.0 Estrogen receptor positive status [ER+]; Z79.811 Long term (current) use of aromatase inhibitors
CPT/HCPCS: 77336; 77412; 77417

== ENCOUNTER 2019-11-07 07:00 | Outpatient (RCR) | payer MEDICARE, SELFPAY ==
--- NOTE | 2019-11-07 11:50 | ONC FU_ITS ---
Dr. Paiz follow up note Patient: Nina Cazares Unit #: [id number]: 1945 Dicatated By: Regis Paiz M.D.Date of Visit:Nov 07, 2019 Onc Med Follow-up/Prog Note History of Present Illness: Mrs. Nina Connlely, is a 74-year-old female with history of uterine carcinoma diagnosed in 2009, underwent hysterectomy and bilateral nephrectomy in [place], [place] followed by radiation therapy and chemotherapy in [place]. Subsequently followed by Dr. masters with no evidence of recurrence. As per patient recently she went for routine yearly health checkup and mammogram was ordered which showed lesion at 1:00 position in the left breast, patient underwent ultrasound-guided biopsy of left breast on 04/25/2019 and final pathology report came back moderately differentiated invasive ductal carcinoma, grade 2, tumor size 0.4 cm, ER 89% positive LA 82% positives HER-2/shahida 2+ but negative for HER-2/shahida overexpression by IHC and over amplification by FISH. Underwent left breast lumpectomy with sentinel lymph node biopsy on no 05/27/2019 final pathology report showed residual moderately differentiated invasive ductal carcinoma, 0.5 cm, grade 2, clear surgical margins but close. Two left axillary sentinel lymph node were examined showed no evidence of metastatic disease. T1a, N0 MX Oncotype DX score 5 e.g. low . Risk of distant recurrence at 9 year with aromatase inhibitor is about 3% and there is no benefit from chemotherapy.started on Arimidex 1 mg by mouth daily for 5 years along with vitamin D/calcium on 07/08/2019 Status post (L) postlumpectomy radiation therapy completed on August 18, 2019 Patient denies any nipple discharge or retraction. Patient denies any palpable mass in the breast or in left axilla. Patient denies any new bony pains., As per patient it was incidental finding on her routine mammogram. Patient has family history of breast cancer in her mother at age 86 and maternal aunt at age 75 years. Patient also reported menarche at age 16 and menopause around age 52 and no history of hormonal supplements. . Came for follow-up, denies any specific complaints, no nausea or vomiting, no fever chills, no diarrhea or constipation, no hot flashes, no musculoskeletal discomfort patient said she had significant skin toxicity from radiation therapy to her left breast but now resolved. Tolerating her Arimidex well. Denies any shortness of breath denies any palpitation denies any fever chills denies any melena or hematochezia denies any hemoptysis hematemesis denies any jaundice.But off and on chronic diarrhea since radiation therapy to the pelvis, now being controlled with antidiarrheal Medications: Aspirin 1 Tablet (of 81 mg) Oral daily, Calcium Citrate + D Tablet Oral, Escitalopram Oxalate 1 Tablet (of 10 mg) Oral daily, Lisinopril 1 Tablet (of 20 mg) Oral daily Allergies: No Known Allergies. Review of Systems: Review of Systems is not available for this patient. Vital Signs: Performed on Nov 07, 2019 09:32 Height - 63.00 in Weight - 185.6 lbs (HIGH) BSA - 1.87 sq.m BMI - 32.88 (HIGH) Temperature - 98.3 F (LOW) Pulse - 90 /min Respiration - 18 /min BP - 150/67 mm(hg) (HIGH) O2 Sat - 96 % Pain - 0 Performance Status: 0 - Fully active, able to carry on all predisease activities without restrictions. (ECOG) Physical Examination: Respiratory - Lungs are clear, Cardiovascular - Regular rate and rhythm of heart, Gastrointestinal - Soft, bowel sounds present, Extremities - No visible edema. Lab/Imaging: Test performed on Nov 06, 2019 09:37 WBC 4.7 10^9/L RBC 3.75 10^12/L HGB 10.1 g/dL HCT 31.5 % MCV 84.0 fl MCH 26.9 pg MCHC 32.1 g/dL RDW 14.9 % Platelet Count 287 10^9/L MPV 9.6 fL Neutrophils (Gran) 2.60 10^9/L Lymphocytes 0.85 10^9/L Monocytes 0.58 10^9/L Eosinophils 0.60 10^9/L Basophils 0.04 10^9/L Manual Lymphocytes 18 % Manual Monocytes 12 % Manual Eosinophils 13 % Manual Basophils 1 % Test performed on Aug 06, 2019 08:45 Sodium 132 mmol/L Potassium 4.9 mmol/L Chloride 96 mmol/L CO2 26 mmol/L Anion Gap 14.9 BUN 19 mg/dL Creatinine 1.2 mg/dL Cr Clearance (Est) 57.03 mL/min Glucose 84 mg/dL Calcium 10.1 mg/dL Protein, Total 7.3 g/dL Albumin 3.9 g/dL Globulin 3.4 g/dL Bilirubin, Total 0.4 mg/dL ALT (SGPT) 14 U/L AST (SGOT) 20 U/L Alkaline Phosphatase 111 IU/L Neutrophil % 60.3 % Lymphocyte % 19.0 % Monocyte % 14.3 % Eosinophil % 5.3 % Basophils % 0.7 % Impression: Moderately differentiated invasive ductal carcinoma involving left breast status post lumpectomy with left axilla sentinel lymph node dissection done on 05/27/2019 final pathology report showed 0.5 cm invasive tumor, grade 2 clear surgical margins but close. Two sentinel lymph nodes were examined and showed no evidence of metastatic disease . T1a , N0, stage IA Oncotype DX score 5 e.g. low, no benefit from chemotherapy. Risk of distant recurrence at 9 years with aromatase inhibitor is about 3%. started on Arimidex 1 mg for 5 years along with vitamin D/calcium supplements on 07/08/2019 ER strongly positive at 89%, LA strongly positive at 82%, HER-2/shahida 2+ posi but negative for HER-2/shahida overexpression by IHC and over amplification by FISH. Ki-67 8% 2. History of uterine carcinoma diagnosed in [address] masters , underwent bilateral oophorectomy/hysterectomy followed by radiation therapy and chemotherapy in [place], Plan: Discussed with patient regarding her labs white blood count 4.7 hemoglobin 10.1 hematocrit 31.5 platelets 287,000 Clinically, patient is doing well with no signs symptom suggestive of recurrence of disease, tolerating adjuvant therapy with Arimidex/vitamin D/calcium well. Her follow-up CBC showed progressive mild anemia but well compensated, etiology unclear, will continue to monitor and repeat her CBC and CMP in 3 months and if anemia persist or worsening, will consider anemia work-up. Patient was also advised in case she develops any symptoms generalized weakness fatigue palpitations shortness of breath she need to call us to check her hemoglobin. Otherwise continue with Arimidex/vitamin D and calcium and also suggested to try [id number] multivitamins Signed By: Regis Paiz M.D. <<Signature on File>>
== END 2019-11-07 23:59 | disposition home or self-care (01) ==
LOC: ONCMED 07:00
PROVIDERS: PCP Registered Nurse; Visit Provider Internal Medicine Hematology & Oncology
DX: C50.412 Malignant neoplasm of upper-outer quadrant of left female breast (principal); D64.9 Anemia, unspecified; Z17.0 Estrogen receptor positive status [ER+]; Z85.42 Personal history of malignant neoplasm of other parts of uterus; Z90.710 Acquired absence of both cervix and uterus; Z90.722 Acquired absence of ovaries, bilateral; Z79.811 Long term (current) use of aromatase inhibitors; Z92.3 Personal history of irradiation; Z92.21 Personal history of antineoplastic chemotherapy
CPT/HCPCS: 99214

== ENCOUNTER 2020-02-05 13:45 | Outpatient (CLI) | payer MEDICARE, SELFPAY ==
--- NOTE | 2020-02-05 14:29 | ONC FU_ITS ---
Dr. Paiz follow up note Patient: Nina Cazares Unit #: [id number]: 1945 Dicatated By: Regis Paiz M.D.Date of Visit:Feb 05, 2020 Onc Med Follow-up/Prog Note History of Present Illness: Mrs. Nina Connelly, is a 74-year-old female with history of uterine carcinoma diagnosed in 2009, underwent hysterectomy and bilateral nephrectomy in [place], [place] followed by radiation therapy and chemotherapy in [facility]. Subsequently followed by Dr. masters with no evidence of recurrence. As per patient recently she went for routine yearly health checkup and mammogram was ordered which showed lesion at 1:00 position in the left breast, patient underwent ultrasound-guided biopsy of left breast on 04/25/2019 and final pathology report came back moderately differentiated invasive ductal carcinoma, grade 2, tumor size 0.4 cm, ER 89% positive ID 82% positives HER-2/shahida 2+ but negative for HER-2/shahida overexpression by IHC and over amplification by FISH. Underwent left breast lumpectomy with sentinel lymph node biopsy on no 05/27/2019 final pathology report showed residual moderately differentiated invasive ductal carcinoma, 0.5 cm, grade 2, clear surgical margins but close. Two left axillary sentinel lymph node were examined showed no evidence of metastatic disease. T1a, N0 MX Oncotype DX score 5 e.g. low . Risk of distant recurrence at 9 year with aromatase inhibitor is about 3% and there is no benefit from chemotherapy.started on Arimidex 1 mg by mouth daily for 5 years along with vitamin D/calcium on 07/08/2019 Status post (L) postlumpectomy radiation therapy completed on August 18, 2019 Patient denies any nipple discharge or retraction. Patient denies any palpable mass in the breast or in left axilla. Patient denies any new bony pains., As per patient it was incidental finding on her routine mammogram. Patient has family history of breast cancer in her mother at age 86 and maternal aunt at age 75 years. Patient also reported menarche at age 16 and menopause around age 52 and no history of hormonal supplements. . Came for follow-up, denies any specific complaints, no fever chills, no nausea or vomiting, no diarrhea or constipation, no shortness of breath or palpitation, no jaundice, no melena or hematochezia, tolerating Arimidex along with vitamin D and calcium well but with occasional hot flashes. Medications: Anastrozole 1 Tablet (of 1 mg) Oral daily, Aspirin 1 Tablet (of 81 mg) Oral daily, Calcium Citrate + D Tablet Oral, Escitalopram Oxalate 1 Tablet (of 10 mg) Oral daily, Lisinopril 1 Tablet (of 20 mg) Oral daily Allergies: No Known Allergies. Review of Systems: Review of Systems is not available for this patient. Vital Signs: Performed on Feb 05, 2020 14:03 Height - 63.00 in Weight - 190.8 lbs (HIGH) BSA - 1.90 sq.m BMI - 33.80 (HIGH) Temperature - 98.0 F (LOW) Pulse - 86 /min Respiration - 16 /min BP - 130/66 mm(hg) O2 Sat - 98 % Pain - 0 Performance Status: 0 - Fully active, able to carry on all predisease activities without restrictions. (ECOG) Physical Examination: Respiratory - Lungs are clear to auscultation, Cardiovascular - Regular rate and rhythm of heart, Gastrointestinal - Soft, bowel sounds present, Extremities - No visible edema. Lab/Imaging: Test performed on Feb 03, 2020 11:35 Glucose 79 mg/dL BUN 17 mg/dL Creatinine 1.08 mg/dL Cr Clearance (Est) 64.3300 mL/min Sodium 136 mmol/L Potassium 4.5 mmol/L Chloride 99 mmol/L CO2 28 mmol/L Calcium 9.9 mg/dL Protein, Total 7.8 g/dL Albumin 4.3 g/dL Bilirubin, Total 0.3 mg/dL Alkaline Phosphatase 100 IU/L AST (SGOT) 22 IU/L ALT (SGPT) 17 IU/L WBC 6.3 10^9/L RBC 4.61 10^12/L HGB 12.3 g/dL HCT 38.5 % MCV 83.5 fl MCH 26.7 pg MCHC 31.9 g/dL RDW 14.8 % Platelet Count 233 10^9/L MPV 10.2 fL Neutrophils (Gran) 3.93 10^9/L Lymphocytes 1.23 10^9/L Monocytes 0.79 10^9/L Eosinophils 0.34 10^9/L Basophils 0.03 10^9/L Manual Lymphocytes 19 % Manual Monocytes 13 % Manual Eosinophils 5 % Manual Basophils 1 % Impression: Moderately differentiated invasive ductal carcinoma involving left breast status post lumpectomy with left axilla sentinel lymph node dissection done on 05/27/2019 final pathology report showed 0.5 cm invasive tumor, grade 2 clear surgical margins but close. Two sentinel lymph nodes were examined and showed no evidence of metastatic disease . T1a , N0, stage IA Oncotype DX score 5 e.g. low, no benefit from chemotherapy. Risk of distant recurrence at 9 years with aromatase inhibitor is about 3%. started on Arimidex 1 mg for 5 years along with vitamin D/calcium supplements on 07/08/2019 ER strongly positive at 89%, ID strongly positive at 82%, HER-2/shahida 2+ posi but negative for HER-2/shahida overexpression by IHC and over amplification by FISH. Ki-67 8% 2. History of uterine carcinoma diagnosed in [address] masters , underwent bilateral oophorectomy/hysterectomy followed by radiation therapy and chemotherapy in [place], Plan: Discussed with patient regarding her labs white blood count 6.3 hemoglobin 12.3 g compared to 10.1 g on November 06, 2019 hematocrit 38.5 platelets 233,000 CMP within normal limits Clinically, patient is doing well with no signs symptom suggestive of recurrence of disease, tolerating Arimidex/vitamin D/calcium well, will continue same As far as anemia is concerned, hemoglobin has improved and now normalized with [id number] multivitamin. We will continue to monitor return to clinic in 3 months with CBC CMP Signed By: Regis Paiz M.D. <<Signature on File>>
== END 2020-02-05 13:46 | disposition home or self-care (01) ==
LOC: ONCMED 13:49
PROVIDERS: PCP Registered Nurse; Visit Provider Internal Medicine Hematology & Oncology
DX: C50.412 Malignant neoplasm of upper-outer quadrant of left female breast (principal); D64.9 Anemia, unspecified; Z17.0 Estrogen receptor positive status [ER+]; Z79.811 Long term (current) use of aromatase inhibitors; Z85.42 Personal history of malignant neoplasm of other parts of uterus; Z92.3 Personal history of irradiation; Z80.3 Family history of malignant neoplasm of breast
CPT/HCPCS: 99214

== ENCOUNTER 2020-03-08 09:49 | Outpatient (CLI) | payer MEDICARE, SELFPAY ==
--- NOTE | 2020-03-08 10:00 | MM_ITS ---
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 Comput er aided detection utilized. Breast composition: The breasts are heterogeneously dense, which may obscure small masses. Extensive postlumpectomy changes in the LEFT axillary tail with additional surgical clips in the axilla. There is increased trabecular thickening and soft tissue thickening throughout the LEFT breast which is pro bably from prior radiation. No recurrent mass or distortion in the LEFT breast. No suspicious calcifi cations. No interval change in the RIGHT breast. MM/[place] [id number] IMPRESSION: BI-RADS: 2-Benign FOLLOW UP: 1 Year Follow-up
== END 2020-03-08 09:50 | disposition home or self-care (01) ==
LOC: RADSHAW 09:53
PROVIDERS: PCP Registered Nurse; Visit Provider Registered Nurse
DX: Z86.000 Personal history of in-situ neoplasm of breast (principal)
CPT/HCPCS: 77066

== ENCOUNTER 2020-05-12 10:52 | Outpatient (CLI) | payer MEDICARE, SELFPAY ==
[2020-05-12 11:29] LABS: Basophils % 0.7 %; Eosinophils # 0.5 10^3/uL (0.0-0.8); Eosinophils % 8.2 %; Hemoglobin 11.4 g/dL (11.5-15.3); Lymphocytes % 16.3 %; Mean Corpuscular HGB Conc 31.7 g/dL (30.0-36.0); Mean Corpuscular Hemoglobin 27.2 pg (28.0-34.0); Mean Corpuscular Volume 85.9 fL (81-99); Monocytes # 0.8 10^3/uL (0.2-0.9); Neutrophils # 3.59 10^3/uL (1.8-7.7); Neutrophils % 60.5 %; Nucleated Red Blood Cells % 0 %; Platelet Count 210 10^3/cmm (130-400); Red Blood Count 4.19 10^6/uL (4.1-5.3); Red Cell Distribution Width 14.3 % (12.1-15.1); White Blood Count 5.9 10^3/uL (4.0-10.0)
[2020-05-12 12:08] LABS: Alanine Aminotransferase 22 U/L (0-33); Albumin Level 3.9 g/dL (3.5-5.2); Alkaline Phosphatase 93 IU/L (35-105); Anion Gap 13.2 (5-19); Aspartate Amino Transferase 30 U/L (0-32); Blood Urea Nitrogen 21 mg/dL (8-23); Calcium 9.6 mg/dL (8.5-10.5); Carbon Dioxide 27 mmol/L (22-29); Chloride 102 mmol/L (98-107); Globulin 3.1 g/dL (1.3-4.6); Glucose 87 mg/dL (65-115); Osmolality Calculated 288 mOsm/kg (285-295); Potassium 4.2 mmol/L (3.5-5.1); Sodium 138 mmol/L (136-145); Total Bilirubin 0.3 mg/dL (0.15-1.2)
--- NOTE | 2020-05-12 13:15 | ONC FU_ITS ---
Dr. Paiz follow up note Patient: Nina Cazares Unit #: [id number]: 1945 Dicatated By: Regis Paiz M.D.Date of Visit:May 12, 2020 Onc Med Follow-up/Prog Note History of Present Illness: Mrs. Nina Connelly, is a 74-year-old female with history of uterine carcinoma diagnosed in 2009, underwent hysterectomy and bilateral nephrectomy in [place], [place] followed by radiation therapy and chemotherapy in [facility]. Subsequently followed by Dr. masters with no evidence of recurrence. As per patient recently she went for routine yearly health checkup and mammogram was ordered which showed lesion at 1:00 position in the left breast, patient underwent ultrasound-guided biopsy of left breast on 04/25/2019 and final pathology report came back moderately differentiated invasive ductal carcinoma, grade 2, tumor size 0.4 cm, ER 89% positive IL 82% positives HER-2/shahida 2+ but negative for HER-2/shahida overexpression by IHC and over amplification by FISH. Underwent left breast lumpectomy with sentinel lymph node biopsy on no 05/27/2019 final pathology report showed residual moderately differentiated invasive ductal carcinoma, 0.5 cm, grade 2, clear surgical margins but close. Two left axillary sentinel lymph node were examined showed no evidence of metastatic disease. T1a, N0 MX Oncotype DX score 5 e.g. low . Risk of distant recurrence at 9 year with aromatase inhibitor is about 3% and there is no benefit from chemotherapy.started on Arimidex 1 mg by mouth daily for 5 years along with vitamin D/calcium on 07/08/2019 Status post (L) postlumpectomy radiation therapy completed on August 18, 2019 Patient denies any nipple discharge or retraction. Patient denies any palpable mass in the breast or in left axilla. Patient denies any new bony pains., As per patient it was incidental finding on her routine mammogram. Patient has family history of breast cancer in her mother at age 86 and maternal aunt at age 75 years. Patient also reported menarche at age 16 and menopause around age 52 and no history of hormonal supplements. Follow-up mammogram done on March 08, 2020 showed benign findings BI-RADS 2 Came for follow-up, denies any specific complaints, no fever chills, no nausea or vomiting, no diarrhea or constipation, no shortness of breath or palpitation, occasionally hot flashes otherwise tolerating Arimidex along with vitamin D and calcium well . Medications: Anastrozole 1 Tablet (of 1 mg) Oral daily, Aspirin 1 Tablet (of 81 mg) Oral daily, Calcium Citrate + D Tablet Oral, Escitalopram Oxalate 1 Tablet (of 10 mg) Oral daily, Lisinopril 1 Tablet (of 20 mg) Oral daily Allergies: No Known Allergies. Review of Systems: Review of Systems is not available for this patient. Vital Signs: Vitals are not available for this patient. Performance Status: 0 - Fully active, able to carry on all predisease activities without restrictions. (ECOG) Physical Examination: Respiratory - Lungs are clear to auscultation, Cardiovascular - Regular rate and rhythm of heart, Gastrointestinal - Soft, bowel sounds present, Extremities - No visible edema. Lab/Imaging: Test performed on Feb 03, 2020 11:35 Glucose 79 mg/dL BUN 17 mg/dL Creatinine 1.08 mg/dL Cr Clearance (Est) 64.3300 mL/min Sodium 136 mmol/L Potassium 4.5 mmol/L Chloride 99 mmol/L CO2 28 mmol/L Calcium 9.9 mg/dL Protein, Total 7.8 g/dL Albumin 4.3 g/dL Bilirubin, Total 0.3 mg/dL Alkaline Phosphatase 100 IU/L AST (SGOT) 22 IU/L ALT (SGPT) 17 IU/L WBC 6.3 10^9/L RBC 4.61 10^12/L HGB 12.3 g/dL HCT 38.5 % MCV 83.5 fl MCH 26.7 pg MCHC 31.9 g/dL RDW 14.8 % Platelet Count 233 10^9/L MPV 10.2 fL Neutrophils (Gran) 3.93 10^9/L Lymphocytes 1.23 10^9/L Monocytes 0.79 10^9/L Eosinophils 0.34 10^9/L Basophils 0.03 10^9/L Manual Lymphocytes 19 % Manual Monocytes 13 % Manual Eosinophils 5 % Manual Basophils 1 % Impression: Moderately differentiated invasive ductal carcinoma involving left breast status post lumpectomy with left axilla sentinel lymph node dissection done on 05/27/2019 final pathology report showed 0.5 cm invasive tumor, grade 2 clear surgical margins but close. Two sentinel lymph nodes were examined and showed no evidence of metastatic disease . T1a , N0, stage IA Oncotype DX score 5 e.g. low, no benefit from chemotherapy. Risk of distant recurrence at 9 years with aromatase inhibitor is about 3%. started on Arimidex 1 mg for 5 years along with vitamin D/calcium supplements on 07/08/2019 ER strongly positive at 89%, IL strongly positive at 82%, HER-2/shahida 2+ posi but negative for HER-2/shahida overexpression by IHC and over amplification by FISH. Ki-67 8% 2. History of uterine carcinoma diagnosed in [address] masters , underwent bilateral oophorectomy/hysterectomy followed by radiation therapy and chemotherapy in [place], Plan: Discussed with patient regarding her labs white blood count 5.9 hemoglobin 11.4 hematocrit 36 platelets 210,000 CMP within normal limits and follow-up mammogram finding which shows BI-RADS 2, benign Clinically, patient doing well with no signs symptom suggestive of recurrence of disease, tolerating Arimidex/vitamin D/calcium well, her lab work-up looks reasonable there is a mild drop in her hemoglobin e.g. 11.4 g compared to 12.3 hemoglobin 20.7 2019 We will continue to monitor and she will return to clinic in 6 months with CBC CMP. Signed By: Regis Paiz M.D. <<Signature on File>>
== END 2020-05-12 10:53 | disposition home or self-care (01) ==
LOC: ONCMED 10:55
PROVIDERS: PCP Registered Nurse; Visit Provider Internal Medicine Hematology & Oncology
DX: C50.412 Malignant neoplasm of upper-outer quadrant of left female breast (principal); Z17.0 Estrogen receptor positive status [ER+]; Z79.811 Long term (current) use of aromatase inhibitors; Z92.3 Personal history of irradiation; Z80.3 Family history of malignant neoplasm of breast; Z85.42 Personal history of malignant neoplasm of other parts of uterus; Z90.710 Acquired absence of both cervix and uterus; Z90.722 Acquired absence of ovaries, bilateral
CPT/HCPCS: 36415; 80053; 85025; 99214

== ENCOUNTER → 2020-07-07 09:52 | Outpatient (BNVA) | payer MEDICARE, SELFPAY | PROVIDERS: PCP Registered Nurse; Referring Provider Registered Nurse; Visit Provider Specialist | DX: M65.332 Trigger finger, left middle finger (principal) | CPT/HCPCS: 73130 ==

== ENCOUNTER → 2020-07-19 11:08 | Outpatient (BNVA) | payer MEDICARE, SELFPAY | PROVIDERS: PCP Registered Nurse; Visit Provider Specialist | DX: Z20.822 Contact with and (suspected) exposure to COVID-19 (principal); Z11.52 Encounter for screening for COVID-19; M65.332 Trigger finger, left middle finger | CPT/HCPCS: 87635 ==

== ENCOUNTER 2020-07-23 07:09 | Day surgery (SDC) | payer MEDICARE, SELFPAY ==
[2020-07-22 14:18] VITALS: BMI 34.9
[2020-07-23] VITALS (7 sets, daily range): BP systolic 137–155; BP diastolic 60–85; PULSE 67–70; RESP 14–22; TEMP 36.4–36.7; O2SAT 95–98
--- NOTE | 2020-07-23 07:44 | P.ANESASSM_ITS ---
Pre-Anesthetic Assessment Pre-Anesthetic Assessment: Height/Weight: Height 1.6 m Weight 89.358 kg Temp Pulse Resp BP Pulse Ox 97.8 F 70 18 152/74 96 07/23/20 07:25 07/23/20 07:25 07/23/20 07:25 07/23/20 07:25 07/23/20 07:25 Preop Diagnosis: Left long trigger finger Proposed Procedure: Operation Date: 07/23/20 08:40 Proposed Procedures p Trigger Finger Release left long 00079 M65.30(Left) - Frieda Giraldo MD Was Beta Rosita taken within 24 hours: N/A Was Clonidine taken within 24 hours: N/A Social: Social History: Tobacco and No alcohol Exam: Pre-Anes Outpt Exam: alert, oriented x 3, clear to auscultation bilaterally and regular rate & rhythm Airway: Submandibular: WNL Cervical ROM: WNL MP: 2 Dentition: Full Pulmonary: Pulmonary: COPD CV/HEM: CV/HEM: HTN Metabolic: Metabolic: Morbid obesity Anesthetic Plan: ASA status: 3 Anesthesia: General Risk of > 500 ml blood loss (7ml/kg in children): No PFSH Anesthesia PFSH: Medical History Enrolled in chronic care management Essential hypertension History of depression Hx of anxiety disorder Hx of primary hypertension Surgical History History of breast biopsy History of hysterectomy (~2009) History of lymph node excision (~04/2019) History of tonsillectomy Family History Mother Breast cancer Denies family history of Anesthesia complication Bleeding disorder Social History Smoking and tobacco status: former smoker Quit status (tobacco): has quit using tobacco Year quit tobacco: 2014 Alcohol intake: never Adopted: No Caregiver/support person: Yes Lives independently: Yes Household members: family Housing: House Marital status: / service: No Current occupational status: retired Current occupational exposures/hazards: No Pets and animals: No History of recent travel: No Sexually active: No Current gender identity: Female Zac/Scientology: Cheondoism Special zac needs: No Agree to transfusion: No Financial difficulty paying for basics: Decline to Answer Data Anesthesia Cardiac Studies: No Data to Display
--- NOTE | 2020-07-23 08:07 | W.PM.OPSUD ---
Surgery/Procedure H&P Update DATE OF PROCEDURE: July 23, 2020 DATE H&P PERFORMED: 07/07/20 H&P UPDATE INFORMATION: I have reviewed H&P completed within last 30 days, I have examined patient prior to procedure and H&P is in [facility] EMR on date indicated PREOP DIAGNOSIS: Left long trigger finger PLANNED PROCEDURE: Operation Date: 07/23/20 08:40 Proposed Procedures p Trigger Finger Release left long 50594 M65.30(Left) - Frieda Giraldo MD Related Problem List Diagnoses (1) Trigger finger, left middle finger:
[2020-07-23] MEDS: sodium chloride 0.9% 1,000 ML 30 ML IV (08:09)
[2020-07-23] MEDS: CELEcoxib 200 mg Capsule 400 MG PO (08:11)
[2020-07-23] MEDS: acetaminophen 1,000 MG/100 ML PIGGYBACK 400 MG IV (08:11)
--- NOTE | 2020-07-23 09:22 | P.OP_ITS ---
Operative Report Date of procedure: July 23, 2020 Pre-op Diagnosis: Left long trigger finger Post-op diagnosis: same Post-op Findings: Thickened A1 roselyn Procedure Done: Release left long finger trigger finger Specimens removed/disposition: None Pathology: none sent Surgeon: Frieda Giraldo Supervisor Riprap Placing: None Anesthesia: General (LMA, ASA 3) Estimated blood loss (mL): 0 Tourniquet time (min): 16 Tourniquet time: At 250 mmHg IV fluids (mL): 200 Urine output (mL): 0 Urine output: No Portillo Complications: None Findings: Thickened A1 roselyn with triggering Condition: stable Disposition: PACU (Then to same-day surgery for discharge to home) Brief History: This 74-year-old woman presented with complaints of significant triggering of the left long finger. After discussion, she wished to proceed with trigger finger release. Risks and complications were discussed with her. She understood. Consents were signed. Procedure: Patient was brought to the operating theater. She was placed on the operating room table. Secondary to previous lymph node excision in the left upper extremity, the decision was made to proceed with a general per LMA. The patient was ASA 3. Patient tolerated it well. 2 g of Ancef was administered preoperatively. A tourniquet was placed high on the arm and was elevated following exsanguination of the arm. Tourniquet time was 16 minutes. Surgical pause was performed prior to commencement of the surgical procedure. At the time of the surgical pause we identified the site and side of surgery. We also identified the patient's identity and appropriate administration of IV antibiotics. Following the surgical pause, an incision was made along the distal palmar crease beneath the long finger. Dissection continued through the skin to the subcutaneous tissues using a scalpel. Blunt dissection was then utilized to spread soft tissues and allow access to the A1 roselyn which was easily identified. It was then incised longitudinally and sharply using a knife. This was accomplished without difficulty and atraumatically. Once the A1 roselyn was released, tendons were brought up out of the wound and evaluated. There were no gross masses on the tendons. Tendons were returned to normal position. We then irrigated the wound and subsequently closed it with 3-0 nylon with an interrupted mattress type suture. Following closure of the wound, the wound was injected with ropivacaine into the subcutaneous tissues as a local anesthetic. Sterile dressing was then placed consisting of OpSite, fluffed fluffs, sterile soft roll, and an Maciel wrap. The patient was returned to recovery in satisfactory condition. She will be discharged home to follow-up with me in the office. There were no complications and no specimens. Associated Problem List Diagnoses (1) Trigger finger, left middle finger:
--- NOTE | 2020-07-23 11:57 | ANE.PACU2 ---
Inpatient post-anesthesia follow up: Airway intact: Yes Vital signs: Temperature 97.6 F Pulse Rate 67 Respiratory Rate 16 Blood Pressure 155/65 Pulse Oximetry 95 Oxygen Delivery Me thod Room Air Oxygen Flow Rate 8 Fraction of Inspir ed Oxygen Hydration adequate: Yes Nausea and vomiting: No Pain level: 1 Mental status: Baseline
== END 2020-07-23 10:40 | disposition home or self-care (01) ==
PROVIDERS: PCP Registered Nurse; Visit Provider Specialist
PROC: (CPT 26055; principal; 2020-07-23 08:30)
DX: M65.332 Trigger finger, left middle finger (principal); J44.9 Chronic obstructive pulmonary disease, unspecified; I10 Essential (primary) hypertension; E66.01 Morbid (severe) obesity due to excess calories; Z68.34 Body mass index [BMI] 34.0-34.9, adult; Z87.891 Personal history of nicotine dependence; Z79.82 Long term (current) use of aspirin; F32.9 Major depressive disorder, single episode, unspecified
CPT/HCPCS: 26055; J0690; J2405; J2704; J3010; J3490; J7030

== ENCOUNTER 2020-11-11 12:52 | Outpatient (CLI) | payer MEDICARE, SELFPAY ==
[2020-11-11 13:33] LABS: Basophils % 0.7 %; Eosinophils # 0.3 10^3/uL (0.0-0.8); Eosinophils % 4.6 %; Hematocrit 36.7 % (37.0-47.0); Lymphocytes # 1.1 10^3/uL (0.8-4.8); Lymphocytes % 17.3 %; Mean Corpuscular HGB Conc 32.7 g/dL (30.0-36.0); Mean Corpuscular Hemoglobin 27.8 pg (28.0-34.0); Monocytes % 15.7 %; Neutrophils # 3.77 10^3/uL (1.8-7.7); Neutrophils % 61.4 %; Nucleated Red Blood Cells % 0 %; Platelet Count 229 10^3/cmm (130-400); Red Blood Count 4.32 10^6/uL (4.1-5.3); Red Cell Distribution Width 13.5 % (12.1-15.1); White Blood Count 6.1 10^3/uL (4.0-10.0)
[2020-11-11 13:46] LABS: Alanine Aminotransferase 13 U/L (0-33); Albumin Level 3.7 g/dL (3.5-5.2); Alkaline Phosphatase 96 IU/L (35-105); Anion Gap 12.9 (5-19); Aspartate Amino Transferase 16 U/L (0-32); Blood Urea Nitrogen 14 mg/dL (8-23); Calcium 9.3 mg/dL (8.5-10.5); Carbon Dioxide 30 mmol/L (22-29); Chloride 96 mmol/L (98-107); Globulin 3.3 g/dL (1.3-4.6); Glucose 79 mg/dL (65-115); Osmolality Calculated 279 mOsm/kg (285-295); Potassium 3.9 mmol/L (3.5-5.1); Sodium 135 mmol/L (136-145); Total Bilirubin 0.3 mg/dL (0.15-1.2)
--- NOTE | 2020-11-11 14:56 | ONC FU_ITS ---
Dr. Paiz follow up note Patient: Nina Cazares Unit #: [id number]: 1945 Dicatated By: Regis Paiz M.D.Date of Visit:Nov 11, 2020 Onc Med Follow-up/Prog Note History of Present Illness: Mrs. Nina Connelly, is a 75-year-old female with history of uterine carcinoma diagnosed in 2009, underwent hysterectomy and bilateral oophorectomy in [place], [place] followed by radiation therapy and chemotherapy in [facility]. Subsequently followed by Dr. masters with no evidence of recurrence. As per patient recently she went for routine yearly health checkup and mammogram was ordered which showed lesion at 1:00 position in the left breast, patient underwent ultrasound-guided biopsy of left breast on 04/25/2019 and final pathology report came back moderately differentiated invasive ductal carcinoma, grade 2, tumor size 0.4 cm, ER 89% positive AK 82% positives HER-2/shahida 2+ but negative for HER-2/shahida overexpression by IHC and over amplification by FISH. Underwent left breast lumpectomy with sentinel lymph node biopsy on no 05/27/2019 final pathology report showed residual moderately differentiated invasive ductal carcinoma, 0.5 cm, grade 2, clear surgical margins but close. Two left axillary sentinel lymph node were examined showed no evidence of metastatic disease. T1a, N0 MX Oncotype DX score 5 e.g. low . Risk of distant recurrence at 9 year with aromatase inhibitor is about 3% and there is no benefit from chemotherapy.started on Arimidex 1 mg by mouth daily for 5 years along with vitamin D/calcium on 07/08/2019 Status post (L) postlumpectomy radiation therapy completed on August 18, 2019 Patient denies any nipple discharge or retraction. Patient denies any palpable mass in the breast or in left axilla. Patient denies any new bony pains., As per patient it was incidental finding on her routine mammogram. Patient has family history of breast cancer in her mother at age 86 and maternal aunt at age 75 years. Patient also reported menarche at age 16 and menopause around age 52 and no history of hormonal supplements. Follow-up mammogram done on March 08, 2020 showed benign findings BI-RADS 2 Came for follow-up, denies any specific complaints, no fever chills, no nausea vomiting, no diarrhea constipation, patient said she had Covid infection despite of vaccinated against Covid but her symptoms were not that bad and recovered. No fever chills, no nausea or vomiting, no diarrhea or constipation, no new bony pains, no night sweats, tolerating Arimidex well . Medications: Anastrozole 1 Tablet (of 1 mg) Oral daily, Aspirin 1 Tablet (of 81 mg) Oral daily, Calcium Citrate + D Tablet Oral, Escitalopram Oxalate 1 Tablet (of 10 mg) Oral daily, Lisinopril 1 Tablet (of 20 mg) Oral daily Allergies: No Known Allergies. Review of Systems: Review of Systems is not available for this patient. Vital Signs: Vitals are not available for this patient. Performance Status: 0 - Fully active, able to carry on all predisease activities without restrictions. (ECOG) Physical Examination: Respiratory - Lungs are clear to auscultation, Cardiovascular - Regular rate and rhythm of heart, Gastrointestinal - Soft, bowel sounds present, Extremities - No visible edema, no rash. Lab/Imaging: Most recent lab results are not available for this patient. Impression: Moderately differentiated invasive ductal carcinoma involving left breast status post lumpectomy with left axilla sentinel lymph node dissection done on 05/27/2019 final pathology report showed 0.5 cm invasive tumor, grade 2 clear surgical margins but close. Two sentinel lymph nodes were examined and showed no evidence of metastatic disease . T1a , N0, stage IA Oncotype DX score 5 e.g. low, no benefit from chemotherapy. Risk of distant recurrence at 9 years with aromatase inhibitor is about 3%. started on Arimidex 1 mg for 5 years along with vitamin D/calcium supplements on 07/08/2019 ER strongly positive at 89%, AK strongly positive at 82%, HER-2/shahida 2+ posi but negative for HER-2/shahida overexpression by IHC and over amplification by FISH. Ki-67 8% 2. History of uterine carcinoma diagnosed in [address] masters , underwent bilateral oophorectomy/hysterectomy followed by radiation therapy and chemotherapy in [place], Plan: Discussed with patient regarding count 6.1 hemoglobin 12 hematocrit 36.7 platelets 229,000 CMP within normal limits Clinically, patient doing well with no new signs symptoms history of recurrence of disease, her follow-up lab work-up showed resolution of mild anemia, patient is tolerating her Arimidex well, will continue same and she will return to clinic in 6 months with follow-up CBC CMP and yearly mammogram. Signed By: Regis Paiz M.D. <<Signature on File>>
== END 2020-11-11 12:53 | disposition home or self-care (01) ==
LOC: ONCMED 12:58
PROVIDERS: PCP Registered Nurse; Visit Provider Internal Medicine Hematology & Oncology
DX: C50.812 Malignant neoplasm of overlapping sites of left female breast (principal); Z17.0 Estrogen receptor positive status [ER+]; E55.9 Vitamin D deficiency, unspecified; E83.51 Hypocalcemia; Z79.811 Long term (current) use of aromatase inhibitors; Z85.42 Personal history of malignant neoplasm of other parts of uterus
CPT/HCPCS: 80053; 85025; 99214

== ENCOUNTER 2021-02-28 15:26 | Outpatient (CLI) | payer MEDICARE, SELFPAY ==
--- NOTE | 2021-02-28 15:45 | XR_ITS ---
WS: [email or web address] SCREENING DEXA SCAN Content360 CLINICAL INFORMATION: M81.0 - Age-related osteoporosis without current patholog... COMPARISON: 2019 FINDINGS: The L1-L4 bone mineral density measures 1.365 g/cm2. This corresponds to a T score score of 1.5 and Z score of 2.6. Left femoral neck bone mineral density measures 0.973 g/cm2. This corresponds to a T score of -0.3 an d Z score of 0.9. Right femoral neck bone mineral density measures 0.947 g/cm2. This corresponds to a T score -0.5of an d Z score of 0.7. Mean femoral neck bone mineral density measures 0.960 g/cm2. This corresponds to a T score of -0.4 an d Z score of 0.8. XR/XR DEXA axial skeleton* [id number] IMPRESSION: Normal bone mineralization. Patient's FRAX calculated 10 year probability for major osteoporotic fracture i s 14.1 % and osteoporotic hip fracture is 4.3%.
== END 2021-02-28 15:27 | disposition home or self-care (01) ==
PROVIDERS: PCP Registered Nurse; Visit Provider Registered Nurse
DX: M81.0 Age-related osteoporosis without current pathological fracture (principal)
CPT/HCPCS: 77080

== ENCOUNTER 2021-03-02 11:34 | Outpatient (CLI) | payer MEDICARE, SELFPAY ==
--- NOTE | 2021-03-02 11:42 | MM_ITS ---
WS: [email or web address] DIAGNOSTIC BILATERAL DIGITAL MAMMOGRAM WITH CAD HISTORY: HX OF BREAST CA COMPARISON: 03/08/2020, 04/01/2019 and 03/05/2019 TECHNIQUE: Bilateral craniocaudad, mediolateral oblique, and mediolateral views are submitted. Comput er aided detection utilized. Breast composition: There are scattered areas of fibroglandular density. Resection site in the upper outer quadrant of the LEFT breast and also at the axilla. No recurrent mass near the surgical clips. There is mild diffuse trabecular thickening and skin thickening throughout the LEFT breast. Consisten t with prior radiation treatment. MM/[place] [id number] IMPRESSION: BI-RADS: 2-Benign FOLLOW UP: 1 Year Follow-up
== END 2021-03-02 11:35 | disposition home or self-care (01) ==
LOC: RADSHAW 11:39
PROVIDERS: PCP Registered Nurse; Visit Provider Registered Nurse
DX: Z85.3 Personal history of malignant neoplasm of breast (principal)
CPT/HCPCS: 77066

== ENCOUNTER → 2021-03-08 13:17 | Outpatient (BNVA) | payer MEDICARE, SELFPAY | PROVIDERS: PCP Registered Nurse; Visit Provider Registered Nurse | DX: L85.3 Xerosis cutis (principal) | CPT/HCPCS: 88305 ==

== ENCOUNTER → 2021-04-18 14:38 | Outpatient (BNVA) | payer MEDICARE, SELFPAY | PROVIDERS: PCP Registered Nurse; Visit Provider Registered Nurse | DX: Z20.822 Contact with and (suspected) exposure to COVID-19 (principal); Z20.828 Contact with and (suspected) exposure to other viral communicable diseases; R05.9 Cough, unspecified; J21.8 Acute bronchiolitis due to other specified organisms; B97.89 Other viral agents as the cause of diseases classified elsewhere | CPT/HCPCS: 87400; 87635 ==

== ENCOUNTER 2021-06-15 08:33 | Outpatient (CLI) | payer MEDICARE, SELFPAY ==
[2021-06-15 09:37] LABS: Basophils % 0.3 %; Eosinophils # 0.3 10^3/uL (0.0-0.8); Eosinophils % 5.1 %; Hematocrit 36.2 % (37.0-47.0); Hemoglobin 11.4 g/dL (11.5-15.3); Lymphocytes # 1.1 10^3/uL (0.8-4.8); Lymphocytes % 19.1 %; Mean Corpuscular HGB Conc 31.5 g/dL (30.0-36.0); Mean Corpuscular Hemoglobin 27.5 pg (28.0-34.0); Mean Corpuscular Volume 87.4 fl (81-99); Mean Platelet Volume 10.3 fL (7.4-10.4); Monocytes # 0.8 10^3/uL (0.2-0.9); Monocytes % 13.5 %; Neutrophils # 3.52 10^3/uL (1.8-7.7); Neutrophils % 61.5 %; Nucleated Red Blood Cells % 0 %; Platelet Count 270 10^3/cmm (130-400); Red Blood Count 4.14 10^6/uL (4.1-5.3); Red Cell Distribution Width 12.9 % (12.1-15.1); White Blood Count 5.7 10^3/uL (4.0-10.0)
[2021-06-15 10:03] LABS: Alanine Aminotransferase 12 U/L (0-33); Alkaline Phosphatase 98 IU/L (35-105); Anion Gap 12.5 (5-19); Aspartate Amino Transferase 15 U/L (0-32); Blood Urea Nitrogen 17 mg/dL (8-23); Calcium 10.1 mg/dL (8.5-10.5); Carbon Dioxide 29 mmol/L (22-29); Chloride 100 mmol/L (98-107); Globulin 3.4 g/dL (1.3-4.6); Glucose 83 mg/dL (65-115); Osmolality Calculated 285 mOsm/kg (285-295); Potassium 4.5 mmol/L (3.5-5.1); Sodium 137 mmol/L (136-145); Total Bilirubin 0.3 mg/dL (0.15-1.2); Total Protein 7.4 g/dL (6.6-8.7)
--- NOTE | 2021-06-15 17:36 | ONC FU_ITS ---
Dr. Paiz follow up note Patient: Nina Cazares Unit #: [id number]: 1945 Dicatated By: Regis Paiz M.D.Date of Visit:Jun 15, 2021 Onc Med Follow-up/Prog Note History of Present Illness: Mrs. Nina Connelly, is a 75-year-old female with history of uterine carcinoma diagnosed in 2009, underwent hysterectomy and bilateral oophorectomy in [place], [place] followed by radiation therapy and chemotherapy in [facility]. Subsequently followed by Dr. masters with no evidence of recurrence. As per patient recently she went for routine yearly health checkup and mammogram was ordered which showed lesion at 1:00 position in the left breast, patient underwent ultrasound-guided biopsy of left breast on 04/25/2019 and final pathology report came back moderately differentiated invasive ductal carcinoma, grade 2, tumor size 0.4 cm, ER 89% positive [place] 82% positives HER-2/shahida 2+ but negative for HER-2/shahida overexpression by IHC and over amplification by FISH. Underwent left breast lumpectomy with sentinel lymph node biopsy on no 05/27/2019 final pathology report showed residual moderately differentiated invasive ductal carcinoma, 0.5 cm, grade 2, clear surgical margins but close. Two left axillary sentinel lymph node were examined showed no evidence of metastatic disease. T1a, N0 MX Oncotype DX score 5 e.g. low . Risk of distant recurrence at 9 year with aromatase inhibitor is about 3% and there is no benefit from chemotherapy.started on Arimidex 1 mg by mouth daily for 5 years along with vitamin D/calcium on 07/08/2019 Status post (L) postlumpectomy radiation therapy completed on August 18, 2019 Patient denies any nipple discharge or retraction. Patient denies any palpable mass in the breast or in left axilla. Patient denies any new bony pains., As per patient it was incidental finding on her routine mammogram. Patient has family history of breast cancer in her mother at age 86 and maternal aunt at age 75 years. Patient also reported menarche at age 16 and menopause around age 52 and no history of hormonal supplements. Follow-up mammogram done on March 08, 2020 showed benign findings BI-RADS 2 Follow-up mammogram done on March 02, 2021 showed BI-RADS 2, benign DEXA scan done on February 28, 2021 showed normal bone mineralization tolerating Arimidex well Came for follow-up, complaining of generalized weakness and fatigue which is a chronic, denies any fever chills denies any nausea or vomiting denies any diarrhea constipation, denies any new bony pains but chronic bilateral hip discomfort/pain specially if she go for long walks. Occasionally hot flashes otherwise tolerating daily Arimidex along with vitamin D and calcium well. . Medications: Anastrozole 1 Tablet (of 1 mg) Oral daily, Aspirin 1 Tablet (of 81 mg) Oral daily, Calcium Citrate + D Tablet Oral, Losartan Potassium 1 Tablet Oral daily Allergies: Escitalopram Oxalate Review of Systems: Review of Systems is not available for this patient. Vital Signs: Performed on Jun 15, 2021 14:57 Height - 63.00 in Weight - 193.8 lbs (HIGH) BSA - 1.91 sq.m BMI - 34.33 (HIGH) Temperature - 98.5 F Pulse - 99 /min Respiration - 20 /min BP - 122/68 mm(hg) O2 Sat - 97 % Pain - 0 Fatigue - 3 Performance Status: 0 - Fully active, able to carry on all predisease activities without restrictions. (ECOG) Physical Examination: Respiratory - Lungs are clear to auscultation, Cardiovascular - Regular rate and rhythm of heart, Gastrointestinal - Soft, bowel sounds present, Extremities - No visible edema. Lab/Imaging: Most recent lab results are not available for this patient. Impression: Moderately differentiated invasive ductal carcinoma involving left breast status post lumpectomy with left axilla sentinel lymph node dissection done on 05/27/2019 final pathology report showed 0.5 cm invasive tumor, grade 2 clear surgical margins but close. Two sentinel lymph nodes were examined and showed no evidence of metastatic disease . T1a , N0, stage IA Oncotype DX score 5 e.g. low, no benefit from chemotherapy. Risk of distant recurrence at 9 years with aromatase inhibitor is about 3%. started on Arimidex 1 mg for 5 years along with vitamin D/calcium supplements on 07/08/2019 ER strongly positive at 89%, NY strongly positive at 82%, HER-2/shahida 2+ posi but negative for HER-2/shahida overexpression by IHC and over amplification by FISH. Ki-67 8% 2. History of uterine carcinoma diagnosed in [address] masters , underwent bilateral oophorectomy/hysterectomy followed by radiation therapy and chemotherapy in [place], Plan: Discussed with patient regarding her labs white blood count 5.7 hemoglobin 11.4 g compared to 12 g in November 2020 hematocrit 36.2 platelets 270,000 CMP within normal limits grams Follow-up mammogram done in February 2021, was benign and also underwent DEXA scan in February 2021 showed normal mineralization Clinically, patient doing well with no new signs symptom suggestive of disease progression, tolerating daily Arimidex along with vitamin D and calcium well, her yearly follow-up mammogram done in February 2021 shows BI-RADS 2, benign, will schedule her for next yearly mammogram in February 2022 Mild anemia, etiology unclear, will continue to monitor. Follow-up DEXA scan done in February 2021 also shows normal mineralization, patient will continue with vitamin D and calcium along with daily Arimidex and return to clinic in 6 months with CBC CMP Signed By: Regis Paiz M.D. <<Signature on File>>
== END 2021-06-15 08:34 | disposition home or self-care (01) ==
PROVIDERS: PCP Registered Nurse; Visit Provider Internal Medicine Hematology & Oncology
DX: C50.812 Malignant neoplasm of overlapping sites of left female breast (principal); Z17.0 Estrogen receptor positive status [ER+]; E55.9 Vitamin D deficiency, unspecified; D64.9 Anemia, unspecified; Z79.818 Long term (current) use of other agents affecting estrogen receptors and estrogen levels; Z79.899 Other long term (current) drug therapy; Z85.41 Personal history of malignant neoplasm of cervix uteri; Z90.710 Acquired absence of both cervix and uterus; Z92.21 Personal history of antineoplastic chemotherapy; Z92.3 Personal history of irradiation
CPT/HCPCS: 36415; 80053; 85025; 99214

== ENCOUNTER 2021-09-22 13:34 | Outpatient (CLI) | payer MEDICARE, SELFPAY ==
--- NOTE | 2021-09-22 13:42 | XR_ITS ---
WS: [email or web address] Lumbar spine, 3 views, 09/22/2021 Clinical Data: M25.551 - Pain in right hip Comparison: None. Findings: No compression fractures or subluxation is seen. There is degenerative disc narrowing at all lumbar l evels from L1-L2 through L5-S1. There is minimal osteoarthritic spurring from L2 through L5. The montez sverse processes are normal. There is sclerosis and irregularity of the inferior aspect of the right SI joint. There is calcification in the wall of the abdominal aorta but no aneurysm. XR/XR lumbar spine 2-3V* [id number] Impression: 1. 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 2. Sclerosis and irregularity of the inferior right SI joint which can represen t sacroiliitis.
--- NOTE | 2021-09-22 13:42 | XR_ITS ---
WS: [email or web address] Left hip, 2 views, AP pelvis, 09/22/2021 Clinical Data: M25.551 - Pain in right hip Comparison: None. Findings: No fractures or dislocations are seen. The left hip shows no erosion, sclerosis, narrowing or fragmen tation of the left femoral head. The right hip joint is normal. The soft tissues are not remarkable. There is sclerosis and irregularity of the inferior aspect of the resident right SI joint which can b e seen with sacroiliitis. XR/XR hip LT 2-3V wo/w pel* [id number] Impression: 1. Negative left hip. 2. Irregularity and sclerosis of the inferior aspect of the right SI joint. Tonnis classification: grade 0: normal radiographs of the hips
== END 2021-09-22 13:35 | disposition home or self-care (01) ==
LOC: RAD 13:36
PROVIDERS: PCP Registered Nurse; Visit Provider Registered Nurse
DX: M25.551 Pain in right hip (principal); M25.552 Pain in left hip
CPT/HCPCS: 72100; 73502

== ENCOUNTER 2021-11-01 06:00 | Outpatient (RCR) | payer MEDICARE, SELFPAY | END 2021-11-06 23:59 | disposition home or self-care (01) | LOC: WPT 06:00 | PROVIDERS: PCP Registered Nurse; Referring Provider Registered Nurse; Visit Provider Registered Nurse | DX: I89.0 Lymphedema, not elsewhere classified (principal) | CPT/HCPCS: 97140; 97162 ==

== ENCOUNTER 2021-11-07 06:00 | Outpatient (RCR) | payer MEDICARE, SELFPAY | END 2021-12-07 23:59 | disposition home or self-care (01) | LOC: WPT 06:00 | PROVIDERS: PCP Registered Nurse; Visit Provider Registered Nurse | DX: I89.0 Lymphedema, not elsewhere classified (principal) | CPT/HCPCS: 97110; 97112; 97140 ==

== ENCOUNTER 2021-12-08 06:00 | Outpatient (RCR) | payer MEDICARE, SELFPAY | END 2022-01-06 23:59 | disposition home or self-care (01) | LOC: WPT 06:00 | PROVIDERS: PCP Registered Nurse; Visit Provider Registered Nurse | DX: I89.0 Lymphedema, not elsewhere classified (principal); M25.559 Pain in unspecified hip | CPT/HCPCS: 97110; 97164 ==

== ENCOUNTER 2021-12-30 09:28 | Oncology outpatient (recurring) (ONCR) | payer MEDICARE, SELFPAY | END 2022-01-06 23:59 | disposition home or self-care (01) | LOC: ONCMED 01-05 14:24 | PROVIDERS: PCP Registered Nurse; Visit Provider Registered Nurse | DX: C50.412 Malignant neoplasm of upper-outer quadrant of left female breast (principal); Z79.811 Long term (current) use of aromatase inhibitors; Z17.0 Estrogen receptor positive status [ER+]; Z92.3 Personal history of irradiation; Z92.21 Personal history of antineoplastic chemotherapy; Z85.42 Personal history of malignant neoplasm of other parts of uterus; Z90.710 Acquired absence of both cervix and uterus; Z90.79 Acquired absence of other genital organ(s); Z90.722 Acquired absence of ovaries, bilateral; Z80.3 Family history of malignant neoplasm of breast | CPT/HCPCS: 80053; 81162; 85025; 99214 ==

== ENCOUNTER → 2022-03-01 10:04 | Outpatient (BNVA) | payer MEDICARE, SELFPAY | PROVIDERS: PCP Registered Nurse; Visit Provider Registered Nurse | DX: R50.9 Fever, unspecified (principal) | CPT/HCPCS: 87400 ==

== ENCOUNTER 2022-03-14 13:30 | Outpatient (CLI) | payer MEDICARE, SELFPAY ==
--- NOTE | 2022-03-14 13:50 | MM_ITS ---
WS: [email or web address] BILATERAL 3D TOMOSYNTHESIS DIGITAL DIAGNOSTIC MAMMOGRAPHY WITH CAD CLINICAL INFORMATION: HX OF BREAST CA COMPARISON: 2020 TECHNIQUE: Bilateral CC, MLO, and ML views. FINDINGS: The breasts are composed of heterogeneous fibroglandular density, which can limit the detection of sm all underlying mass lesions. Resection cavity upper outer LEFT breast and axilla. No evidence of recu rrent mass or lesion. Diffuse trabecular thickening LEFT breast compatible with treatment-related annel nges. Treatment-related skin thickening. Vascular calcification. No suspicious focal mass, asymmetry, calcifications, or architectural distortion. No evidence of tor gnancy. MM/[place] [id number] IMPRESSION: BI-RADS: 2-Benign FOLLOW UP: 1 Year Follow-up Recommend return to annual diagnostic mammography.
== END 2022-03-14 13:31 | disposition home or self-care (01) ==
PROVIDERS: PCP Registered Nurse; Visit Provider Registered Nurse
DX: Z85.3 Personal history of malignant neoplasm of breast (principal)
CPT/HCPCS: 77062; G0279

== ENCOUNTER 2022-05-10 14:16 | Outpatient (CLI) | payer MEDICARE, SELFPAY ==
--- NOTE | 2022-05-10 14:15 | USR_ITS ---
PROCEDURE INFORMATION: Exam: US Duplex Right Lower Extremity Arteries Or Arterial Bypass Grafts Exam date and time: 05/10/2022 2:36 PM Age: 76 years old Clinical indication: Pain and condition or disease; Peripheral vascular disease; Leg, lower and foot; Right; Patient HX: Patient has intermittent history of cellulitis; Additional info: I73.9 - peripheral vascular disease, unspecified TECHNIQUE: Imaging protocol: Right Real-time duplex scan of the arteries or arterial bypass grafts of the right lower extremity with 2-D queen scale, color Doppler flow and spectral waveform analysis. Images documented and saved. COMPARISON: No relevant prior studies available. FINDINGS: Right common femoral artery: No occlusion or significant stenosis. Biphasic waveform. No pseudoaneurysm in the inguinal region. Right superficial femoral artery: No occlusion or significant stenosis. Biphasic waveform. Right popliteal artery: No occlusion or significant stenosis. Biphasic waveform. Right calf/foot arteries: No occlusion or significant stenosis in the visualized arteries. Biphasic waveforms. Dorsalis pedis artery is patent. Soft tissues: No hematoma or collection. US/[place] [id number] IMPRESSION: No stenosis or occlusion.
== END 2022-05-10 14:17 | disposition home or self-care (01) ==
LOC: RAD 14:17
PROVIDERS: PCP Registered Nurse; Visit Provider Registered Nurse
DX: I73.9 Peripheral vascular disease, unspecified (principal); I89.0 Lymphedema, not elsewhere classified
CPT/HCPCS: 80053; 85025; 93926

== ENCOUNTER → 2022-05-16 12:05 | Outpatient (BNVA) | payer MEDICARE, SELFPAY | PROVIDERS: PCP Registered Nurse; Visit Provider Registered Nurse | DX: I89.0 Lymphedema, not elsewhere classified (principal) | CPT/HCPCS: 85025 ==

== ENCOUNTER → 2022-05-19 08:03 | Outpatient (BNVA) | payer MEDICARE, SELFPAY | PROVIDERS: PCP Registered Nurse; Visit Provider Thoracic Surgery (Cardiothoracic Vascular Surgery) | DX: I89.0 Lymphedema, not elsewhere classified (principal) | CPT/HCPCS: 29581; 99213 ==

== ENCOUNTER → 2022-05-22 16:19 | Outpatient (BNVA) | payer MEDICARE, SELFPAY | PROVIDERS: PCP Registered Nurse; Visit Provider Thoracic Surgery (Cardiothoracic Vascular Surgery) | DX: I89.0 Lymphedema, not elsewhere classified (principal) | CPT/HCPCS: 29581 ==

== ENCOUNTER → 2022-05-31 14:22 | Outpatient (BNVA) | payer MEDICARE, SELFPAY | PROVIDERS: PCP Registered Nurse; Visit Provider Thoracic Surgery (Cardiothoracic Vascular Surgery) | DX: I89.0 Lymphedema, not elsewhere classified (principal); R23.4 Changes in skin texture | CPT/HCPCS: 99212 ==

== ENCOUNTER 2022-07-04 08:51 | Oncology outpatient (recurring) (ONCR) | payer MEDICARE, SELFPAY ==
[2022-07-04 09:12] LABS: Basophils % 0.7 %; Eosinophils # 0.6 10^3/uL (0.0-0.8); Eosinophils % 9.6 %; Hematocrit 36.6 % (37.0-47.0); Hemoglobin 11.5 g/dL (11.5-15.3); Lymphocytes # 1.4 10^3/uL (0.8-4.8); Lymphocytes % 23.4 %; Mean Corpuscular HGB Conc 31.4 g/dL (30.0-36.0); Mean Corpuscular Hemoglobin 26.4 pg (28.0-34.0); Mean Corpuscular Volume 84.1 fl (81-99); Mean Platelet Volume 10.6 fL (7.4-10.4); Monocytes # 0.6 10^3/uL (0.2-0.9); Monocytes % 10.7 %; Neutrophils # 3.21 10^3/uL (1.8-7.7); Neutrophils % 55.3 %; Nucleated Red Blood Cells % 0 %; Platelet Count 214 10^3/cmm (130-400); Red Blood Count 4.35 10^6/uL (4.1-5.3); Red Cell Distribution Width 14.6 % (12.1-15.1); White Blood Count 5.8 10^3/uL (4.0-10.0)
[2022-07-04 09:30] LABS: Alanine Aminotransferase 14 U/L (0-33); Albumin Level 3.7 g/dL (3.5-5.2); Alkaline Phosphatase 99 U/L (35-105); Blood Urea Nitrogen 14 mg/dL (8-23); Calcium 9.4 mg/dL (8.5-10.5); Carbon Dioxide 27 mmol/L (22-29); Chloride 101 mmol/L (98-107); Globulin 3.4 g/dL (1.3-4.6); Glucose 114 mg/dL (65-115); Osmolality Calculated 287 mOsm/kg (285-295); Sodium 138 mmol/L (136-145); Total Bilirubin 0.2 mg/dL (0.15-1.2); Total Protein 7.1 g/dL (6.6-8.7)
[2022-07-04 09:31] LABS: Anion Gap 14.1 (5-19); Potassium 4.1 mmol/L (3.5-5.1)
[2022-07-04 09:32] LABS: Aspartate Amino Transferase 21 U/L (0-32)
== END 2022-07-07 23:59 | disposition home or self-care (01) ==
LOC: LAB 08:58 → ONCMED 12:09
PROVIDERS: Nurse Practitioner; PCP Registered Nurse; Visit Provider Internal Medicine Hematology & Oncology
DX: C50.812 Malignant neoplasm of overlapping sites of left female breast (principal); Z17.0 Estrogen receptor positive status [ER+]; Z90.710 Acquired absence of both cervix and uterus; Z90.722 Acquired absence of ovaries, bilateral; Z90.12 Acquired absence of left breast and nipple; Z79.811 Long term (current) use of aromatase inhibitors; M89.9 Disorder of bone, unspecified; Z79.899 Other long term (current) drug therapy
CPT/HCPCS: 36415; 80053; 85025; 99214

== ENCOUNTER → 2022-08-02 11:36 | Outpatient (BNVA) | payer MEDICARE, SELFPAY | PROVIDERS: PCP Registered Nurse; Visit Provider Registered Nurse | DX: Z00.00 Encounter for general adult medical examination without abnormal findings (principal); I10 Essential (primary) hypertension; I89.0 Lymphedema, not elsewhere classified | CPT/HCPCS: 80061 ==

== ENCOUNTER 2022-08-10 12:09 | Outpatient (CLI) | payer MEDICARE, SELFPAY ==
--- NOTE | 2022-08-10 12:30 | CT_ITS ---
WS: [email or web address] LDCT LUNG CANCER SCREENING TECHNIQUE: Noncontrast CT of the chest with coronal and sagittal reformatted images. CLINICAL INFORMATION: Z12.2 - Encounter for screening for malignant neoplasm of... COMPARISON: None. DLP: 84.61 mGy.cm DIvol: Mean CTDIvol: 1.70 (mGy) All CT scans at [facility] use at least one of these dose optimization techniques: automat ed exposure control; mA and/or kV adjustment per patient size (includes targeted exams where dose is matched to clinical indication); or iterative reconstruction. FINDINGS: No acute pulmonary infiltrates. No suspicious pulmonary parenchymal abnormalities. No media stinal or hilar lymphadenopathy. Moderate aortic calcification. Coronary calcification. Low-attenuation lesions in the LEFT hepatic lobe partially visualized and may represent hepatic cysts but technically indeterminate. Recommend further evaluation with contrast-enhanced CT of abdomen pel vis. Surgical Clips LEFT breast and LEFT axilla. Adrenal glands are normal. Small esophageal hiatal hernia. CT/CT lung screening [id number] IMPRESSION:Low-attenuation lesions in the LEFT hepatic lobe partially visualize d.Recommend further evaluation with CT abdomen pelvis with contrast. Some of th anat are present on the radiation therapy CT July 17, 2019 and may represent he patic cysts but indeterminant without contrast. LUNG-RADS: 1S-Negative with Significant Findings FOLLOW UP: 12 Month: Continue annual screening with LDCT
== END 2022-08-10 12:10 | disposition home or self-care (01) ==
LOC: RAD 12:11
PROVIDERS: PCP Registered Nurse; Visit Provider Registered Nurse
DX: Z12.2 Encounter for screening for malignant neoplasm of respiratory organs (principal); Z87.891 Personal history of nicotine dependence
CPT/HCPCS: 71271

== ENCOUNTER 2022-08-31 12:16 | Outpatient (CLI) | payer MEDICARE, SELFPAY ==
--- NOTE | 2022-08-31 12:30 | USCV_ITS ---
Nina Cazares Age: 76 Gender: F : 1945 Exam Date: 08/31/2022 13:02 Ordering Phys: Isela Sanchez ANESTHESIOLOGY RESIDENT Technologist: Eloy Mckay Exam Location: [facility] [place] Indication: SCREENING Risk Factors: Previous Vascular Surgery: Right Brachial BP: / Left Brachial BP: / Right Left Velocity (cm/s) Spectral Plaque Velocity (cm/s) Spectral Plaque Syst/Diast Broadening Syst/Diast Broadening 60.60/ 12.40 Prox CCA 76.10 / 19.00 72.20/ 16.30 Mid CCA 74.60 / 18.60 83.10/ 18.60 Distal CCA 83.90 / 17.10 129.00/35.30 Prox ICA 163.10/ 28.00 112.50/25.40 Mid ICA 156.80/ 38.30 108.30/24.50 Distal ICA 128.40/ 33.30 106.80 ECA 104.10 1.56 ICA/CCA 1.94 Antegrade Vertebral Antegrade 74.60/ 11.70 cm/s 92.60/ 24.70 cm/s Tri Subclavian Bi 245.3 194.3 0 0 CONCLUSIONS Right ICA stenosis 50-69% closer to 50%. Mild atheromatous plaque right carotid bulb/ICA. Left ICA stenosis 50-69%. Mild atheromatous plaque left carotid bulb/ICA. Normal antegrade Doppler flow noted in the right vertebral artery. Normal antegrade Doppler flow noted in the left vertebral artery. Yg Lopes MD (Electronically Signed) Final Date: 31 Aug 2022 17:32 S
== END 2022-08-31 12:17 | disposition home or self-care (01) ==
PROVIDERS: PCP Registered Nurse; Visit Provider Registered Nurse
DX: Z00.00 Encounter for general adult medical examination without abnormal findings (principal); Z13.6 Encounter for screening for cardiovascular disorders; I10 Essential (primary) hypertension
CPT/HCPCS: 93880

== ENCOUNTER 2022-09-01 12:17 | Outpatient (CLI) | payer MEDICARE, SELFPAY ==
[2022-09-01] MEDS: iohexol 350 mg/mL 500 mL Btl (per mL) IV (12:52)
--- NOTE | 2022-09-01 13:00 | CT_ITS ---
WS: [email or web address] CT ABDOMEN WITH CONTRAST HISTORY: K76.89 - Other specified diseases of liver Contiguous single phase 5 mm axial imaging performed to the abdomen. Oral contrast has not been provi ded. Coronal and sagittal reformats are submitted. All CT scans at [facility] use at least on e of these dose optimization techniques: automated exposure control; mA and/or kV adjustment per nano ent size (includes targeted exams where dose is matched to clinical indication); or iterative reconst ruction. IV CONTRAST: Omnipaque 350; 100 mL IV. Oral contrast: No DLP: 322.75 mGy.cm COMPARISON: None available. Lower thorax: Lung bases are clear. Heart is normal size. Small hiatal hernia. Liver/biliary system: Normal size liver. There are 3 scattered low-attenuation subcentimeter nodules within the LEFT lobe of the liver. The largest is 9.5 mm. Low-attenuation most consistent with small cysts. The smallest are too small to characterize and may be tiny hemangiomas. There is no suspicious mass. Normal portal vein. Gallbladder: Normal. No gallstones or wall thickening. No pericholecystic fluid. Pancreas: Normal size pancreas and pancreatic duct. No adjacent inflammation. Spleen: Normal size spleen. No mass or infarct. Adrenal glands: Normal. Right kidney: Normal. Left kidney: Normal. Aorta: Moderate atherosclerosis with no aneurysm. Mildly ectatic aorta. No aneurysm. Lymphadenopathy: None. Free fluid: None. GI tract: Unremarkable. Abdominal wall: Unremarkable abdominal wall. No hernia. Visualized osseous structures: Unremarkable. CT/CT abdomen w con* [id number] IMPRESSION: 1. LEFT lobe of the liver contains 3 subcentimeter low-attenuation nodules. Th anat are probably cysts. The largest cyst measures 9.5 mm. The smallest cyst is too small to characterize by imaging. No evidence for metastatic disease to the liver. 2. Moderate atherosclerosis aorta.
== END 2022-09-01 12:18 | disposition home or self-care (01) ==
LOC: RAD 12:22
PROVIDERS: PCP Registered Nurse; Visit Provider Registered Nurse
DX: K76.89 Other specified diseases of liver (principal); I70.0 Atherosclerosis of aorta
CPT/HCPCS: 74160; Q9967

== ENCOUNTER 2023-01-04 10:55 | Oncology outpatient (recurring) (ONCR) | payer MEDICARE, SELFPAY ==
[2023-01-04 11:20] VITALS: BP 165/70; PULSE 75; RESP 16; TEMP 36.8; O2SAT 97
[2023-01-04 11:30] LABS: Basophils % 0.4 %; Eosinophils # 0.3 10^3/uL (0.0-0.8); Eosinophils % 3.6 %; Hematocrit 35.5 % (36-47); Lymphocytes # 1.5 10^3/uL (0.8-4.8); Lymphocytes % 21.9 %; Mean Corpuscular HGB Conc 32.4 g/dL (30-55); Mean Corpuscular Hemoglobin 27.5 pg (27-33); Mean Corpuscular Volume 84.9 fl (85-98); Monocytes # 0.9 10^3/uL (0.2-0.9); Monocytes % 13.2 %; Neutrophils # 4.14 10^3/uL (1.8-7.7); Neutrophils % 60.2 %; Nucleated Red Blood Cells % 0 %; Platelet Count 230 10^3/cmm (157-399); Red Blood Count 4.18 10^6/uL (3.85-5.65); Red Cell Distribution Width 13.6 % (12.1-15.1); White Blood Count 6.89 10^3/uL (3.29-11.43)
[2023-01-04 11:53] LABS: Alanine Aminotransferase 22 U/L (0-33); Alkaline Phosphatase 95 U/L (35-105); Anion Gap 12.6 (5-19); Aspartate Amino Transferase 23 U/L (0-32); Blood Urea Nitrogen 17 mg/dL (8-23); Calcium 9.3 mg/dL (8.5-10.5); Carbon Dioxide 28 mmol/L (22-29); Chloride 103 mmol/L (98-107); Globulin 2.9 g/dL (1.3-4.6); Glucose 88 mg/dL (65-115); Osmolality Calculated 289 mOsm/kg (285-295); Potassium 4.6 mmol/L (3.5-5.1); Sodium 139 mmol/L (136-145); Total Bilirubin 0.2 mg/dL (0.15-1.2); Total Protein 6.9 g/dL (6.6-8.7)
== END 2023-01-06 23:59 | disposition home or self-care (01) ==
LOC: ONCMED 10:57
PROVIDERS: PCP Registered Nurse; Visit Provider Internal Medicine Medical Oncology
DX: C50.412 Malignant neoplasm of upper-outer quadrant of left female breast (principal); D05.12 Intraductal carcinoma in situ of left breast; Z17.0 Estrogen receptor positive status [ER+]; Z79.899 Other long term (current) drug therapy
CPT/HCPCS: 36415; 80053; 85025; 99214

== ENCOUNTER 2023-03-05 12:53 | Outpatient (CLI) | payer MEDICARE, SELFPAY ==
--- NOTE | 2023-03-05 13:00 | XR_ITS ---
WS: [email or web address] DEXA (DUAL ENERGY X-RAY ABSORPTIOMETRY) Bone mineral density was performed using a SinglePlatform machine. HISTORY: Z00.00 - Encounter for general adult medical examination ... COMPARISON: 02/28/2021 Lumbar spine BMD (L1-L4): 1.366 g/cm2 T score: 1.5 Z score: 2.5 Total hip BMD: Left: 0.953 g/cm2. T score: -0.4 Z score: 0.7 Right: 0.932 g/cm2. T score: -0.6 Z score: 0.5 10 year probability of a major osteoporotic fracture is 18.8%. Compared to the prior study from 02/28/2021. Lumbar spine bone mineral density has increased by 0.1%. Bilateral hips bone mineral density has decreased by 1.8%. IMPRESSION: NORMAL BONE MINERAL DENSITY based upon the WHO classification for females. No significant change in bone mineral density within the hips or lumbar spine.
== END 2023-03-05 12:54 | disposition home or self-care (01) ==
LOC: RAD 12:53
PROVIDERS: PCP Registered Nurse; Visit Provider Registered Nurse
DX: Z00.00 Encounter for general adult medical examination without abnormal findings (principal)
CPT/HCPCS: 77080

== ENCOUNTER 2023-04-11 09:15 | Outpatient (CLI) | payer MEDICARE, SELFPAY ==
--- NOTE | 2023-04-11 09:19 | MM_ITS ---
WS: [email or web address] Bilateral diagnostic 3D tomosynthesis digital mammogram, 04/11/2023 Clinical Data: C50.919 - Malignant neoplasm of unspecified site of unspe... Comparison: 03/14/2022, 03/02/2021, 03/08/2020, 04/01/2019, 03/05/2019, 05/10/2007, 05/02/2006. Findings: Both breasts show fibroglandular tissue. The right breast is normal. The left breast shows surgical c lips in the upper outer quadrant and left axilla. There is minimal skin thickening overlying the surg ical site. No change from prior mammograms is seen. Impression: 1. Negative bilateral mammogram is unchanged. 2. Recommend annual mammograms MM/[place] [id number] BIRADS: 2-Benign FOLLOW UP: 1 Year Follow-up The CAD brick paving checker was used.
== END 2023-04-11 09:16 | disposition home or self-care (01) ==
LOC: RAD 09:16
PROVIDERS: PCP Registered Nurse; Visit Provider Registered Nurse
DX: C50.919 Malignant neoplasm of unspecified site of unspecified female breast (principal)
CPT/HCPCS: 77062; G0279

== ENCOUNTER → 2024-01-29 09:35 | Outpatient (BNVA) | payer MEDICARE, SELFPAY | PROVIDERS: PCP Registered Nurse; Visit Provider Registered Nurse | DX: Z13.1 Encounter for screening for diabetes mellitus (principal); Z13.6 Encounter for screening for cardiovascular disorders | CPT/HCPCS: 80053; 83036; 85025 ==

== ENCOUNTER 2024-02-14 13:23 | Outpatient (CLI) | payer MEDICARE, SELFPAY ==
--- NOTE | 2024-02-14 13:30 | CT_ITS ---
WS: [email or web address] LDCT LUNG CANCER SCREENING TECHNIQUE: Noncontrast CT of the chest with coronal and sagittal reformatted images. CLINICAL INFORMATION: z12.2 screening for lung cancer COMPARISON: 08/10/2022 DLP: 93.60 mGy.cm DIvol: Mean CTDIvol: 1.90 (mGy) All CT scans at [facility] use at least one of these dose optimization techniques: automat ed exposure control; mA and/or kV adjustment per patient size (includes targeted exams where dose is matched to clinical indication); or iterative reconstruction. FINDINGS: No new suspicious pulmonary parenchymal abnormalities. A few tiny scattered micronodules. Normal caliber thoracic aorta. Aortic calcification. Coronary calcification. No mediastinal or hilar lymphadenopathy. No axillary lymphadenopathy. Small esophageal hiatal hernia. Small LEFT adrenal nodu le likely adenoma. Splenic artery calcification. Stable previously described low-attenuation lesions in the LEFT hepatic lobe.Mild thoracic curve. Mil d thoracic kyphosis. Surgical clips LEFT axilla. CT/CT lung screening [id number] IMPRESSION: LUNG-RADS: 2-Benign Appearance or Behavior FOLLOW UP: 12 Month: Continue annual screening with LDCT
== END 2024-02-14 13:24 | disposition home or self-care (01) ==
LOC: RAD 13:24
PROVIDERS: PCP Registered Nurse; Visit Provider Registered Nurse
DX: Z12.2 Encounter for screening for malignant neoplasm of respiratory organs (principal); I70.0 Atherosclerosis of aorta; I25.84 Coronary atherosclerosis due to calcified coronary lesion; D35.02 Benign neoplasm of left adrenal gland; D73.89 Other diseases of spleen; K76.9 Liver disease, unspecified
CPT/HCPCS: 71271

== ENCOUNTER → 2024-02-15 07:42 | Outpatient (BNVA) | payer MEDICARE, SELFPAY | PROVIDERS: PCP Registered Nurse; Visit Provider Registered Nurse | DX: L03.113 Cellulitis of right upper limb (principal) | CPT/HCPCS: 85025 ==

== ENCOUNTER 2024-03-26 12:20 | Outpatient (CLI) | payer MEDICARE, SELFPAY ==
--- NOTE | 2024-03-26 12:45 | USR_ITS ---
PROCEDURE INFORMATION: Exam: US Left Limited Joint or Other Non-Vascular Extremity Structure Exam date and time: 03/26/2024 12:35 PM Age: 78 years old Clinical indication: Injury or trauma; Sprain or strain; Ankle; Left; Additional info: S86.012a - strain of left achilles tendon, initial encounter, need sagittal and transverse views TECHNIQUE: Imaging protocol: US left limited joint or other nonvascular extremity structure. Real-time ultrasound with image documentation. Exam focused on the area of clinical interest. COMPARISON: No relevant prior studies available. FINDINGS: Soft tissues: Unremarkable. No loculated collections. Other findings: There are multiple calcifications involving the left Achilles tendon but the tendon demonstrates no evidence of tear. There is no hematoma or fluid collection. US/US soft tissue/extremity [id number] IMPRESSION: Tendinous calcifications involving the Achilles tendon. 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
== END 2024-03-26 12:21 | disposition home or self-care (01) ==
LOC: RAD 12:21
PROVIDERS: PCP Registered Nurse; Visit Provider Registered Nurse
DX: M76.62 Achilles tendinitis, left leg (principal)
CPT/HCPCS: 76882

== ENCOUNTER 2024-04-16 11:19 | Outpatient (CLI) | payer MEDICARE, SELFPAY ==
--- NOTE | 2024-04-16 11:00 | MM_ITS ---
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 Computer aided detection utilized. Breast composition: There are scattered areas of fibroglandular density. Lumpectomy site upper outer quadrant LEFT breast. Additional LEFT axillary tono dissection clips. Benign calcifications scattered within each breast. No suspicious mass or calcification identified. No distortion. MM/MM diag BI tomosynthesis [id number] IMPRESSION: BI-RADS: 2 - Benign. FOLLOW UP: 1 Year Follow-up
== END 2024-04-16 11:20 | disposition home or self-care (01) ==
LOC: RAD 11:23
PROVIDERS: PCP Registered Nurse; Visit Provider Registered Nurse
DX: Z12.39 Encounter for other screening for malignant neoplasm of breast (principal); Z86.000 Personal history of in-situ neoplasm of breast; R92.323 Mammographic fibroglandular density, bilateral breasts; Z98.890 Other specified postprocedural states; R92.1 Mammographic calcification found on diagnostic imaging of breast
CPT/HCPCS: 77062; G0279

== ENCOUNTER → 2024-04-29 08:48 | Outpatient (BNVA) | payer MEDICARE, SELFPAY | PROVIDERS: PCP Registered Nurse; Visit Provider Podiatrist Foot & Ankle Surgery | DX: M76.62 Achilles tendinitis, left leg (principal); M25.572 Pain in left ankle and joints of left foot | CPT/HCPCS: 73610; 99203 ==

== ENCOUNTER 2024-04-29 10:52 | Outpatient (CLI) | payer MEDICARE, SELFPAY | END 2024-04-29 10:53 | disposition home or self-care (01) | LOC: SPT 10:52 | PROVIDERS: PCP Registered Nurse; Visit Provider Podiatrist Foot & Ankle Surgery | DX: Z46.89 Encounter for fitting and adjustment of other specified devices (principal); M25.572 Pain in left ankle and joints of left foot; M76.62 Achilles tendinitis, left leg | CPT/HCPCS: L4361 ==

== ENCOUNTER 2024-05-10 06:30 | Outpatient (RCR) | payer MEDICARE, SELFPAY | END 2024-06-06 23:59 | disposition home or self-care (01) | LOC: WPT 06:30 | PROVIDERS: Visit Provider Podiatrist Foot & Ankle Surgery | DX: M76.62 Achilles tendinitis, left leg (principal) | CPT/HCPCS: 97035; 97110; 97112; 97140; 97162; 97530 ==

== ENCOUNTER 2024-06-07 06:00 | Outpatient (RCR) | payer MEDICARE, SELFPAY | END 2024-07-07 23:59 | disposition home or self-care (01) | LOC: WPT 06:00 | PROVIDERS: Family Provider Registered Nurse; Visit Provider Podiatrist Foot & Ankle Surgery | DX: M76.62 Achilles tendinitis, left leg (principal) | CPT/HCPCS: 97035; 97110; 97112; 97140; 97530 ==

== ENCOUNTER → 2024-06-30 13:03 | Outpatient (BNVA) | payer MEDICARE, SELFPAY | PROVIDERS: Family Provider Registered Nurse; Visit Provider Podiatrist Foot & Ankle Surgery | DX: M76.62 Achilles tendinitis, left leg (principal) | CPT/HCPCS: 99213 ==

== ENCOUNTER 2024-10-16 13:08 | Oncology outpatient (recurring) (ONCR) | payer MEDICARE, SELFPAY ==
[2024-10-16 13:26] LABS: Hematocrit 37.4 % (36-47); Hemoglobin 11.80 g/dL (11.27-16.99); Mean Corpuscular HGB Conc 31.6 g/dL (30-55); Mean Corpuscular Hemoglobin 27.1 pg (27-33); Mean Corpuscular Volume 85.8 fl (85-98); Nucleated Red Blood Cells % 0 %; Platelet Count 202 10^3/cmm (157-399); Red Blood Count 4.36 10^6/uL (3.85-5.65); White Blood Count 6.71 10^3/uL (3.29-11.43)
[2024-10-16 13:43] LABS: Alanine Aminotransferase 18 U/L (0-33); Albumin Level 4.0 g/dL (3.5-5.2); Alkaline Phosphatase 105 U/L (35-105); Anion Gap 16.4 (5-19); Aspartate Amino Transferase 29 U/L (0-32); Blood Urea Nitrogen 18 mg/dL (8-23); Calcium 9.5 mg/dL (8.5-10.5); Carbon Dioxide 24 mmol/L (22-29); Chloride 101 mmol/L (98-107); Creatinine Clr Calc Pharmacy 41.3866; Globulin 2.9 g/dL (1.3-4.6); Glucose 82 mg/dL (65-115); Osmolality Calculated 285 mOsm/kg (285-295); Potassium 4.4 mmol/L (3.5-5.1); Sodium 137 mmol/L (136-145); Total Protein 6.9 g/dL (6.6-8.7)
== END 2024-11-06 23:59 | disposition home or self-care (01) ==
PROVIDERS: Family Provider Registered Nurse; Visit Provider Internal Medicine
DX: Z08 Encounter for follow-up examination after completed treatment for malignant neoplasm (principal); Z85.3 Personal history of malignant neoplasm of breast; Z85.42 Personal history of malignant neoplasm of other parts of uterus; Z92.21 Personal history of antineoplastic chemotherapy; Z92.3 Personal history of irradiation; Z90.710 Acquired absence of both cervix and uterus; Z90.722 Acquired absence of ovaries, bilateral; Z87.891 Personal history of nicotine dependence
CPT/HCPCS: 36415; 80053; 85025; 99213

== ENCOUNTER → 2025-02-02 10:33 | Outpatient (BNVA) | payer MEDICARE, SELFPAY | PROVIDERS: Family Provider Registered Nurse; Visit Provider Registered Nurse | DX: Z13.6 Encounter for screening for cardiovascular disorders (principal) | CPT/HCPCS: 80061 ==

== ENCOUNTER 2025-02-26 14:01 | Oncology outpatient (recurring) (ONCR) | payer MEDICARE, SELFPAY ==
[2025-02-26 14:19] LABS: Hematocrit 37.5 % (36-47); Hemoglobin 11.90 g/dL (11.27-16.99); Mean Corpuscular HGB Conc 31.7 g/dL (30-55); Mean Corpuscular Hemoglobin 27.0 pg (27-33); Mean Corpuscular Volume 85.2 fl (85-98); Nucleated Red Blood Cells % 0 %; Platelet Count 252 10^3/cmm (157-399); Red Blood Count 4.40 10^6/uL (3.85-5.65); White Blood Count 5.56 10^3/uL (3.29-11.43)
[2025-02-26 14:35] LABS: Alanine Aminotransferase 25 U/L (0-33); Albumin Level 3.7 g/dL (3.5-5.2); Alkaline Phosphatase 98 U/L (35-105); Anion Gap 13.8 (5-19); Aspartate Amino Transferase 20 U/L (0-32); Blood Urea Nitrogen 14 mg/dL (8-23); Calcium 9.4 mg/dL (8.5-10.5); Carbon Dioxide 27 mmol/L (22-29); Chloride 103 mmol/L (98-107); Globulin 3.3 g/dL (1.3-4.6); Glucose 82 mg/dL (65-115); Osmolality Calculated 288 mOsm/kg (285-295); Potassium 4.8 mmol/L (3.5-5.1); Sodium 139 mmol/L (136-145); Total Protein 7.0 g/dL (6.6-8.7)
== END 2025-03-08 23:59 | disposition home or self-care (01) ==
LOC: ONCMED 14:01
PROVIDERS: Internal Medicine Medical Oncology; Family Provider Registered Nurse; Visit Provider Internal Medicine
DX: Z08 Encounter for follow-up examination after completed treatment for malignant neoplasm (principal); Z85.3 Personal history of malignant neoplasm of breast; Z85.42 Personal history of malignant neoplasm of other parts of uterus; L40.9 Psoriasis, unspecified; Z92.3 Personal history of irradiation; Z87.891 Personal history of nicotine dependence; Z92.21 Personal history of antineoplastic chemotherapy; Z90.722 Acquired absence of ovaries, bilateral; Z90.710 Acquired absence of both cervix and uterus
CPT/HCPCS: 36415; 80053; 82306; 85025; 99214